=== PATIENT | female | born 1950 | race Caucasian/White ===

== ENCOUNTER 2017-06-12 07:30 | Inpatient (IN) | payer BC ==
--- NOTE | 2017-06-29 09:37 | HP ---
DATE OF ADMISSION: 07/03/17 PROVIDER: Андрей Berrios MD * (DICTATED BY [facility] TSE) CHIEF COMPLAINT: Right knee pain. HISTORY OF PRESENT ILLNESS: Ramya is a 66-year-old female followed by Dr. Berrios for ongoing pain in the right knee. The distance that she is able to ambulate without significant pain has decreased recently. She has difficulty with stairs. She has failed conservative treatment, and elected to proceed with right total knee arthroplasty. PAST MEDICAL HISTORY: 1. Hypertension. 2. High cholesterol. 3. Arthritis. 4. Type II diabetes. PAST SURGICAL HISTORY: 1. Left total knee replacement. 2. Hysterectomy. 3. A Mohs' procedure on her nose. She reports no complications with anesthesia with any of those procedures. CURRENT MEDICATIONS: 1. Lisinopril 40 mg po daily. 2. Metformin HDL 1000 mg twice daily. 3. Metoprolol succinate ER 50 mg once daily. 4. Amlodipine besylate 10 mg once daily. 5. Omeprazole 20 mg once daily. 6. Meloxicam 7.5 mg twice daily. 7. Aspirin 81 mg daily. 8. Flaxseed oil 1000 mg daily. 9. Calcium plus D 1000/800 mg/units once daily. ALLERGIES: 1. BACTRIM. 2. HYDROCHLOROTHIAZIDE. FAMILY HISTORY: Positive for maternal diabetes, maternal high blood pressure, and stroke in her maternal grandmother. SOCIAL HISTORY: She lives with her . She works as an media assistant. She denies tobacco use. She drinks five alcoholic beverages weekly. She exercises occasionally. REVIEW OF SYSTEMS: Negative for recent hospitalizations, fevers, chills, night sweats or weight loss. Head - negative for headaches, lightheadedness or balance problems. Cardiovascular - negative for chest or arm pain with exertion , history of heart attack, heart murmur, heart palpitations, positive for high blood pressure, negative for embolism or deep vein thrombosis. Respiratory - negative for chronic cough, shortness of breath with exertion, asthma, or COPD. Gastrointestinal for occasional heartburn, negative for nausea, vomiting, diarrhea or constipation, positive for GERD. Genitourinary - positive for a recent urinary tract infection which has cleared with antibiotics. Negative for urinary frequency, night-time urination or kidney problems. Musculoskeletal - negative for chronic back pain or recent fracture. Skin - negative for rashes, lesions, bumps or sores. Neurologic - negative for seizures, stroke, epilepsy, depression or anxiety. Endocrine - negative for thyroid problems, positive for diabetes. Hematology - negative for easy bleeding , bruising or anemia. PHYSICAL EXAMINATION GENERAL: She is a well-developed, well-nourished, pleasant female in no acute distress at rest. She is alert and oriented x3 with appropriate mood and affect. VITAL SIGNS: The patient is 5 feet 4 inches, 185 pounds. Blood pressure 125/85 , pulse 78, temperature 97.4. HEENT: Normocephalic, atraumatic. Her hearing and vision are grossly intact. NECK: Her trachea is midline. RESPIRATORY: Lungs are clear to auscultation bilaterally. No wheezes, rales, or rhonchi. CARDIOVASCULAR: Regular rate and rhythm. No murmurs, rubs, or gallops. Normal S1 and S2. ABDOMEN: Soft, nondistended, and nontender. Normal bowel sounds. EXTREMITIES: Exam of the right lower extremity - skin is intact without abrasions or open wounds. There is no edema, ecchymosis or gross deformities. She has a mild joint effusion. She is tender to palpation along the medial joint line. She has a stable varus and valgus stress test. She is able to extend, but is lacking about 2 degrees of full extension. She is able to flex to 120 degrees. Calf is soft and non-tender. She has 2+ tibial and dorsalis pedis pulse. IMPRESSION: Right knee osteoarthritis. PLAN: The patient is to undergo right total knee arthroplasty by Dr. Berrios on 07/03/17. The risks, benefits, and postoperative course were discussed with the patient at length and she would like to proceed. A prescription for Percocet was sent to her pharmacy for post-operative pain. All of her questions were answered to her full satisfaction. She is understanding to call if she develops any problems or concerns. [facility] TSE [id number]/[facility] #: [id number] MTDD
[2017-07-02] MEDS ORDERED: Buffered Lidocaine 0.9% SYRIN* 5 ML/SYR SYRINGE INTRADERM ONE (13:31)
[2017-07-03] MEDS ORDERED: Buffered Lidocaine 0.9% SYRIN* 5 ML/SYR SYRINGE ONE (07:31)
[2017-07-03] MEDS ORDERED: ceFAZolin 2 GM PREMIX (*) 50 ML IVPB ONE (07:46)
[2017-07-03] MEDS ORDERED: Midazolam* 1 MG/ML 5 ML VIAL (5 MG) ONE ×2 (09:23→10:05)
[2017-07-03] MEDS ORDERED: ROPIVACAINE 5 MG/ML 30 ML BTL (0.5%) ONE (09:24)
[2017-07-03] MEDS ORDERED: Bupivacaine 0.5% SDV PF* 30 ML VIAL ONE ×2 (09:33→11:34)
[2017-07-03] MEDS ORDERED: Propofol* 10 MG/ML 20 ML BTL IV PUSH ONE (09:45)
[2017-07-03] MEDS ORDERED: fentaNYL* 50 MCG/ML 2 ML VIAL (100 MCG VIAL) ONE ×2 (09:45→11:44)
[2017-07-03] MEDS ORDERED: HYDROcodone/ACETAMIN 5-325 MG* 1 TAB PO PRN (10:33)
[2017-07-03] MEDS ORDERED: EPHEDrine (Pressors)* 50 MG/ML VIAL IV PUSH PRN (10:33)
[2017-07-03] MEDS ORDERED: Ondansetron INJ* 2 MG/ML VIAL IV PRN ×2 (10:33→12:44)
[2017-07-03] MEDS ORDERED: diPHENhydraMINE IV* 50 MG/ML 1 ml VIAL (BENADRYL) IV PRN (10:33)
[2017-07-03] MEDS ORDERED: DiMENhydriNATE IV* 50 MG/ML VIAL IV PUSH PRN (10:33)
[2017-07-03] MEDS ORDERED: oxyCODONE/Acetamin 5/325 MG* TAB PO PRN ×2 (10:33→12:44)
[2017-07-03] MEDS ORDERED: Lactated Ringers 500 ml BAG* 500 ML IV PRN (10:33)
[2017-07-03] MEDS ORDERED: HYDROmorphone* 1 MG/ML 1 ML CARPUJECT IV PRN (10:52)
[2017-07-03] MEDS ORDERED: fentaNYL* 50 MCG/ML 2 ML VIAL (100 MCG VIAL) IV PRN (10:52)
[2017-07-03] MEDS ORDERED: Scopolamine 1.5 mg* PATCH TRANSDERM SCH (11:00)
[2017-07-03] MEDS ORDERED: Ropivacaine 0.2% EPIDURAL* 200 MG/100 ML BAG EPIDURAL SCH (11:00)
[2017-07-03] MEDS ORDERED: Ropivacaine 0.2% EPIDURAL* 200 MG/100 ML BAG EPIDURAL ONE (11:59)
[2017-07-03] MEDS ORDERED: Morphine INJ* 4 MG/ML 1 ML CARPUJECT IV PRN (12:44)
[2017-07-03] MEDS ORDERED: diPHENhydraMINE PO* 25 MG PO PRN (12:44)
[2017-07-03] MEDS ORDERED: Bisacodyl SUPP* 10 MG SUPP PR PRN (12:44)
[2017-07-03] MEDS ORDERED: Acetaminophen TAB* 325 MG PO PRN (12:44)
[2017-07-03] MEDS ORDERED: Estradiol VAGINAL TAB(NF) 10 MCG VAG.TAB VAGINAL PRN (13:04)
[2017-07-03] MEDS ORDERED: Scopolamine 1.5 mg* PATCH ONE (13:17)
--- NOTE | 2017-07-03 13:39 | RAD ---
HISTORY: Right total knee replacement COMPARISONS: January 29, 2017 VIEWS: 2, Frontal and lateral views of the right knee FINDINGS: BONE DENSITY: Normal. BONES: The patient is status post right knee arthroplasty. There is no hardware failure or osteolysis. JOINTS: The patient is status post right knee arthroplasty ALIGNMENT: There is no dislocation. SOFT TISSUES: There is postsurgical change to the soft tissue. OTHER FINDINGS: None. IMPRESSION: STATUS POST RIGHT KNEE ARTHROPLASTY
[2017-07-03] MEDS ORDERED: Dextrose 50% Syringe 50 ML* 25 GM/50 ML SYRINGE IV PUSH PRN (17:36)
[2017-07-03] MEDS: Insulin LISPRO* 1 UNITS UNIT SUBCUT SCH (17:52)
[2017-07-03] MEDS ORDERED: amLODIPine TAB* 5 MG PO SCH (18:00)
[2017-07-03] MEDS ORDERED: ceFAZolin 1 GM VIAL(*) 1 GM in NS 0.9% 50 ML* 50 ML IVPB SCH (18:00)
--- NOTE | 2017-07-03 18:01 | CONSULT ---
Subjective Date of Service: 07/03/17 Interval History: Ms. Garcia is a 66 yo female with a PMH of HTN, hypercholesterolemia, OA, CKD stage 3, and DM2 who had an elective right total knee arthroplasty. She had previously failed conservative treatment. She denies any recent illness, CP, SOB , abd pain, n/v/d, urinary complaint. She currently denies pain and is tolerating her dinner tray. She is most concerned about pain control; we discussed the medications that will be available and the importance of communicating how she is feeling with the nursing and medical staff. Family History: Findings - Mother - DM, HTN, MGM - CVA Social History: Findings - Denies any hx tobacco use, reports occasional alcohol use, denies illicit drug use. 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 Lives with , Ricky Garcia, who is also HCP. Past Medical History: Findings - HTN, hypercholesterolemia, OA, DM2, CKD 3 Review of Systems - Measurements Intake and Output: Intake and Output Last 24 Hours 07/01/17 07/02/17 07/03/17 07/04/17 06:59 06:59 06:59 06:59 Intake Total 2370 Output Total 3675 Balance -1305 Weight 186 lb Intake: IV Fluids 2350 LR 2300 NS 50ML, Cefazolin 2G 50 Oral 20 Output: Lyn 3675 - Review of Systems Constitutional Symptoms: Negative: Weakness, Fatigue, Fever HEENT: Positive: Normal Negative: Change in Hearing, Vertigo, Sinus Problem Eyes: Positive: Normal, Cataract - s/p correction earlier this year Negative: Change in Vision Thyroid: Negative: Primary Hypothyroidism, Primary Hyperthyroidism, Weight Loss, Weight Gain Pulmonary: Positive: Normal Negative: Cough, Wheezing, Shortness of Breath Cardiology: Positive: Normal Negative: Chest Pain, Shortness of Breath, Palpitations, Edema Gastroenterology: Positive: Normal Negative: Abdominal Pain, Nausea, Vomiting, Diarrhea Genital - Urinary: Positive: Normal Negative: Dysuria Musculoskeletal: Positive: Joint Pain, Arthritis Endocrinology: Positive: Diabetes Mellitus Neurology: Positive: Normal Negative: Headache, Change in Vision, Dizziness, Numbness\Paresthesiae, Unexplained Weakness Psychiatry: Positive: Normal Negative: Depression, Anxiety Objective Active Medications: Acetaminophen (Tylenol Tab*) 650 mg PO Q4H PRN PRN Reason: pain and temp Hydrocodone Bitart/Acetaminophen ([place] 5-325 Tab*) 1 tab PO Q3H PRN PRN Reason: moderate pain Amlodipine Besylate (Norvasc Tab*) 10 mg PO QPM DANETTE Aspirin (Aspirin Tab*) 325 mg PO DAILY DANETTE Bisacodyl (Dulcolax Supp*) 10 mg WA DAILY PRN PRN Reason: constipation Calcium/Vitamin D (Oscal D Tab 250/125*) 1 tab PO DAILY [facility] Dextrose (D50w Syringe 50 Ml*) 12.5 gm IV PUSH .FOR FS < 60 - SS PRN PRN Reason: FS < 60 Dimenhydrinate (Dramamine Iv*) 12.5 mg IV PUSH ONCE PRN PRN Reason: NAUSEA/VOMITING Diphenhydramine HCl (Benadryl Iv*) 12.5 mg IV Q6H PRN PRN Reason: PRURITIS Diphenhydramine HCl (Benadryl Po*) 25 mg PO Q6H PRN PRN Reason: itching Docusate Sodium (Colace Cap*) 100 mg PO BID DANETTE Ephedrine Sulfate (Ephedrine Sulfate (Pressors)*) 5 mg IV PUSH Q5M PRN PRN Reason: HYPOTENSION Estradiol (Vagifem) 10 mcg VAGINAL BEDTIME PRN PRN Reason: DISCOMFORT Ropivacaine (Ropivacaine 0.2% Epidural*) 200 mg in 100 mls @ 0 mls/hr EPIDURAL .PER RATE DANETTE; Per Protocol PRN Reason: Protocol Lactated Ringer's (Lactated Ringers 500 Ml Bag*) 500 mls @ 2,000 mls/hr IV ONCE PRN PRN Reason: FOR SBP < 90 Lactated Ringer's (Lactated Ringers 1000 Ml Bag*) 1,000 mls @ 100 mls/hr IV PER RATE DANETTE Cefazolin Sodium/Dextrose (Kefzol 1 Gm In Dextrose Duplex (*)) 1 gm in 50 mls @ 200 mls/hr IVPB Q8H DANETTE Stop: 07/04/17 10:14 Insulin Human Lispro (Humalog*) 0 units SUBCUT AC DANETTE PRN Reason: Protocol Last Admin: 07/03/17 17:52 Dose: Not Given Lactulose (Lactulose*) 30 ml PO Q6H PRN PRN Reason: constipation Magnesium Hydroxide (Milk Of Magnesia Liq*) 30 ml PO Q6H PRN PRN Reason: constipation Metoprolol Succinate (Toprol Xl Tab*) 50 mg PO QPM [facility] Morphine Sulfate (Morphine Inj (Syringe)*) 2 mg IV Q2H PRN PRN Reason: PAIN - SEVERE Omeprazole (Prilosec Cap*) 20 mg PO QAM DANETTE Ondansetron HCl (Zofran Inj*) 4 mg IV Q6H PRN PRN Reason: NAUSEA/VOMITING Ondansetron HCl (Zofran Inj*) 4 mg IV Q6H PRN PRN Reason: nausea Oxycodone/Acetaminophen (Percocet 5/325 Tab*) 1 tab PO Q3H PRN PRN Reason: moderate pain Oxycodone/Acetaminophen (Percocet 5/325 Tab*) 1 tab PO Q3H PRN PRN Reason: PAIN - MODERATE Oxycodone/Acetaminophen (Percocet 5/325 Tab*) 2 tab PO Q3H PRN PRN Reason: Pain - Moderate - severe Pharmacy Profile Note (Scopolomine Patch Remove*) 1 note PATCH OFF .AFTER 72 HOURS ONE Stop: 07/06/17 10:37 Scopolamine (Transderm-Scop 1.5 Mg Patch*) 1 patch TRANSDERM Q72H [facility] Last Admin: 07/03/17 13:18 Dose: 1 patch Vital Signs 07/03/17 07/03/17 07/03/17 07:19 12:30 12:35 Temperature 97.7 F 97.0 F Pulse Rate 76 70 70 Respiratory 16 18 16 Rate Blood Pressure 143/88 135/92 141/108 (mmHg) O2 Sat by Pulse 96 98 98 Oximetry 07/03/17 07/03/17 07/03/17 12:40 13:12 13:45 Temperature Pulse Rate 74 69 72 Respiratory 17 15 16 Rate Blood Pressure 144/87 135/77 132/69 (mmHg) O2 Sat by Pulse 97 97 95 Oximetry 07/03/17 07/03/17 07/03/17 14:27 14:50 14:53 Temperature 98.0 F 98.0 F Pulse Rate 64 64 Respiratory 18 16 18 Rate Blood Pressure 134/74 134/74 (mmHg) O2 Sat by Pulse 97 97 Oximetry 07/03/17 07/03/17 07/03/17 15:28 16:40 16:57 Temperature 97.8 F 97.7 F Pulse Rate 70 63 Respiratory 20 18 16 Rate Blood Pressure 121/68 128/73 (mmHg) O2 Sat by Pulse 98 97 Oximetry Oxygen Devices in Use Now: None Appearance: Well developed, well nourished female, sitting up in bed, in NAD Eyes: No Scleral Icterus Ears/Nose/Mouth/Throat: Clear Oropharnyx, Mucous Membranes Moist Neck: NL Appearance and Movements; NL JVP Respiratory: Symmetrical Chest Expansion and Respiratory Effort, Clear to Auscultation Cardiovascular: NL Sounds; No Murmurs; No JVD, RRR Abdominal: NL Sounds; No Tenderness; No Distention Extremities: - - RLE dressing c/d/i with hemovac drain with bloody drainage, distal pulses intact Neurological: Alert and Oriented x 3, NL Muscle Strength and Tone Lines/Tubes/Other Access: Clean, Dry and Intact Peripheral IV Nutrition: Taking PO's Assessment/Plan - Billing Plan By Medical Problem: 1. S/p right total knee replacement - management per ortho. Continue pain management, PT/OT. Follow HH and monitor for transfusion needs. 2. HTN - will hold lisinopril post operatively but continue amlodipine with hold parameters. 3. Hypercholesterolemia - heart healthy diet, continue outpatient f/u with PCP. 4. Type 2 DM - will hold metformin post operatively. FSBG AC with Lispro SSI. Recent HgbA1c 6.5, demonstrating good control at home. 5. CKD, stage 3 - monitor renal function post operatively. Avoid nephrotoxic medications 6. Menopausal vaginal symptoms - hold estradiol, as estrogen can increase likelihood of thromboembolic events VTE PPX: Per ortho, ASA 325 mg Diet: Consistent carb diet Code Status: Full code, Ricky Garcia is HCP. Also sister, Ines Gasca, [phone] Admission Status and Rationale: Inpatient Thank you for this consultation. We will follow with you. Counseling and/or Coordination of Care Minutes: 45
[2017-07-03] MEDS: Metoprolol Succinate XL TAB* 50 MG PO SCH (18:08)
[2017-07-03] MEDS: ceFAZolin 1 GM in Dextrose (*) 1 GM/50 ML BAG IVPB SCH (18:08)
[2017-07-03] MEDS: Docusate CAP* 100 MG PO SCH (21:01)
[2017-07-04] MEDS: ceFAZolin 1 GM in Dextrose (*) 1 GM/50 ML BAG IVPB SCH ×2 (02:14→09:42)
--- NOTE | 2017-07-04 04:21 | OP ---
CC: Sheron Ray * DATE OF OPERATION: 07/03/17 - ROOM #341 DATE OF : 54 SURGICAL CARE: Right knee. SURGEON: Андрйе Berrios MD ASSISTANTS: 1. CAMDEN Wellington. 2. Patt Machado, cardiac technologist. ANESTHESIOLOGIST: Bennett Adame MD ANESTHESIA: Spinal with IV sedation. PRE-OP DIAGNOSIS: Severe arthritis of the right knee especially in the lateral compartment with valgus malalignment. POST-OP DIAGNOSIS: Severe arthritis of the right knee especially in the lateral compartment with valgus malalignment. OPERATIVE PROCEDURE: Right total knee replacement. INDICATIONS: Severe right knee arthritis, no longer responsive to nonoperative care. COMPONENTS USED: Magalys Persona knee was utilized. A size 5 femur, a 32 patella, a 10 articular surface, and an E-femur, E tibial component with a small peg extension. All components cemented. COMPLICATIONS: There were no complications. DRAINS: Two blood collection drains, right knee, at the end of the case. ESTIMATED BLOOD LOSS: 200 mL. REPLACEMENT: Crystalloid fluids. CONDITION: Stable to the recovery room. DESCRIPTION OF PROCEDURE: The patient was brought to the operating room and placed on the operating room table in the supine position following the administration of the spinal and the patient was returned to the supine position. A Lyn catheter was inserted. The posterior tibial pulse was noted to be 2+ on the right. The right knee was noted to have a small flexion contracture and valgus alignment. The right proximal thigh was wrapped with a tourniquet. The right leg was given an preliminary chlorhexidine prep and then a formal ChloraPrep from the tourniquet to the tips of the toes. After prepping , draping, and sealing off, we did our universal protocol time-out confirming Ramya Radha and a plan for right total knee replacement. We all agreed and we proceeded. The surgical care was mainly done without tourniquet with the knee acutely flexed and the right foot resting on a padded foot piece. The skin incision went from 2 fingerbreadths proximal to the superior pole of the patellar to the medial aspect of the tibial tubercle. The skin and subcu was divided down to the deep fascia. The prepatellar bursa was traversed and the knee was entered medial parapatellar finding some clear synovial fluid that was not abundant. The anteromedial soft tissues on the tibia were divided down to bone medial to the tibial tubercle, going up to the joint line and then medial parapatellar. The quad tendon divided at the junction of the rectus femoris and vastus medialis staying as close to vastus medialis as possible going 3 to 4 cm proximal to superior pole of the patella. The patella was made so that it could be everted. The anteromedial soft tissues on the tibia were elevated subperiosteally going medially around to the deep MCL and then to the posterior medial corner of the knee. The patient had complete eburnation of bone with bone- on-bone arthritis, lateral femoral condyle, lateral tibial plateau. The patella had large osteophytes and there were some smaller osteophytes on the condyles and plateau including the lateral plateau anteriorly. After the exposure, then the anterior horn of medial meniscus was carefully excised. The lateral meniscus had a large chunk anteriorly, this was carefully excised and there were some remaining lateral meniscus posteriorly that was excised later in the case. The ACL was divided and removed. The osteophytes were removed from the unicondylar notch and the distal anterior femur was exposed subperiosteally for referencing and measuring. The ACL and PCL were uplifted from their femoral origins. The tibia was made so that it could be subluxated from under the femur and PCL was carefully excised keeping careful hemostasis and working very carefully posteriorly. We paid attention to the lateral geniculate course at the periphery of the lateral meniscus as the case went on as well. The infrapatellar fat pad was excised, synovectomy was completed around the patella. After this exposure, then the proximal tibial cut was made. First our goal here was to remove a few millimeters of bone from the low point on the eburnated posterior lateral tibial plateau and 3 to 4 mm on the medial side. The tibial surface goal was to have a tibial surface that would be perpendicular to the long axis of the tibia and have a slight posterior slope. The distal femoral cutting guide was then applied. We made an entry into the femoral canal and suctioned the femur to discourage any embolization and the femoral cutting guide distally was applied with 5 degrees of valgus and on #1 regarding the small flexion contracture of the knee. The distal femoral cut was completed and the extension gap allowed a 10-mm block. The femur was then measured for a size 5 and the cutting block for the 5 was applied to the distal femur and the 5 cuts were completed for the distal femur. We then finished removal of the posterior horn of the lateral meniscus, the PCL with some osteophyte from the postero-medial femoral condyle, the medial meniscus carefully preserving the MCL. At this stage, we had nice ligamentous balance and extension and flexion with a 10-mm block including the 90 degrees of flexion. The femur was completed for the size 5 with the intercondylar cutout. The femoral canal was cleaned x6 with saline, suctioned empty, and a bone block was then inserted. The tibia was then completed for a size 5 and the knee was then articulated and extended with an E tibia, a 10 articular surface, and a 5 femur with nice knee extension, stable ligaments in extension, knee flexion well past 125 degrees, and stable ligaments in 90 degrees of knee flexion. The patella was cut flat, a 32 was chosen, three drill holes were made , these were undercut and a lateral release was not necessary. The final components were then opened. The leg was exsanguinated, the tourniquet was elevated to 275. All the knee was then cleaned in extension with pulsed saline irrigation and careful suction with 2 to 3 L of saline. The knee was flexed, retractors were put into position and all the bony surfaces were then cleaned with pulsed saline 2 to 3 L more. All surfaces were then dried. The cement was mixed, the components were cemented into position, patella followed by tibia , followed by femur. Each was impacted, excess cement was removed, and the knee was articulated and extended during the final hardening. The tourniquet was deflated, we checked posteriorly for retained cement fragments and loose pieces. Careful hemostasis was achieved during the closure. The pericapsular tissues posteromedially, medially, and laterally were infiltrated with Marcaine 0.5% without epinephrine 25 mL and another 5 mL was inserted into the knee at the end of the case. The quadriceps mechanism was reapproximated with interrupted #1 Polysorb in figure- of-8 fashion. Two blood collection drains were brought out through the superolateral suprapatellar pouch. After getting to the medial retinaculum, then we used 0 Polysorb going distally. The deep fascia closed with interrupted 0 Polysorb, the superficial subcu closed with 3-0 Polysorb, and the skin was closed with maria luisa. The skin was washed and dried. The knee was flexed and extended several times during the closure to see that nothing was tethered, and it was not. After washing and drying, the maria luisa were covered with Betadine-soaked release, sterile gauze, sterile Webril, cryotherapy cuff, ABD pads, and then a 6-inch Govind bandage loosely applied. The patient was returned to the recovery room in stable and satisfactory condition having tolerated the procedure very well. [id number]/[facility] #: [id number] FREDO
[2017-07-04] MEDS: oxyCODONE/Acetamin 5/325 MG* TAB PO PRN ×5 (05:40→22:26)
[2017-07-04 05:44] LABS: Hematocrit 30 % (35-47); Hemoglobin 9.9 g/dl (12.0-16.0)
[2017-07-04 06:00] LABS: BUN/Creatinine Ratio 15.5 (8-20); EGFR African American 69.4 (>60); EGFR Non-African American 53.9 (>60); Potassium 4.4 mmol/L (3.5-5.0)
[2017-07-04] MEDS: Insulin LISPRO* 1 UNITS UNIT SUBCUT SCH ×3 (07:19→17:42)
[2017-07-04] MEDS ORDERED: Lisinopril TAB* 10 MG PO SCH (09:00)
[2017-07-04] MEDS: Omeprazole CAP* 20 MG PO SCH (09:10)
[2017-07-04] MEDS: Calcium/Vitamin D TAB 250/125* TAB PO SCH (09:10)
[2017-07-04] MEDS: Docusate CAP* 100 MG PO SCH ×2 (09:10→22:27)
[2017-07-04] MEDS: Aspirin TAB* 325 MG PO SCH (09:43)
--- NOTE | 2017-07-04 14:21 | PN ---
Subjective Date of Service: 07/04/17 Interval History: Patient seen and examined at bedside. Denies fever/chills, CP, SOB, abd pain Reports good pain control, tolerating diet Able to participate in PT today No acute concerns Family History: Findings - Mother - DM, HTN, MGM - CVA Social History: Findings - Denies any hx tobacco use, reports occasional alcohol use, denies illicit drug use. 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 Lives with , Ricky Garcia, who is also HCP. Past Medical History: Findings - HTN, hypercholesterolemia, OA, DM2, CKD 3 Objective Active Medications: Acetaminophen (Tylenol Tab*) 650 mg PO Q4H PRN PRN Reason: pain and temp Hydrocodone Bitart/Acetaminophen ([place] 5-325 Tab*) 1 tab PO Q3H PRN PRN Reason: moderate pain Amlodipine Besylate (Norvasc Tab*) 10 mg PO QPM [facility]AN[facility]TE Aspirin (Aspirin Tab*) 325 mg PO DAILY [facility] Last Admin: 07/04/17 09:43 Dose: 325 mg Bisacodyl (Dulcolax Supp*) 10 mg NM DAILY PRN PRN Reason: constipation Calcium/Vitamin D (Oscal D Tab 250/125*) 1 tab PO DAILY [facility] Last Admin: 07/04/17 09:10 Dose: 1 tab Dextrose (D50w Syringe 50 Ml*) 12.5 gm IV PUSH .FOR FS < 60 - SS PRN PRN Reason: FS < 60 Dimenhydrinate (Dramamine Iv*) 12.5 mg IV PUSH ONCE PRN PRN Reason: NAUSEA/VOMITING Diphenhydramine HCl (Benadryl Iv*) 12.5 mg IV Q6H PRN PRN Reason: PRURITIS Diphenhydramine HCl (Benadryl Po*) 25 mg PO Q6H PRN PRN Reason: itching Docusate Sodium (Colace Cap*) 100 mg PO BID [facility] Last Admin: 07/04/17 09:10 Dose: 100 mg Ephedrine Sulfate (Ephedrine Sulfate (Pressors)*) 5 mg IV PUSH Q5M PRN PRN Reason: HYPOTENSION Ropivacaine (Ropivacaine 0.2% Epidural*) 200 mg in 100 mls @ 0 mls/hr EPIDURAL .PER RATE DANETTE; Per Protocol PRN Reason: Protocol Last Admin: 07/03/17 21:54 Dose: 8 mls/hr Lactated Ringer's (Lactated Ringers 500 Ml Bag*) 500 mls @ 2,000 mls/hr IV ONCE PRN PRN Reason: FOR SBP < 90 Lactated Ringer's (Lactated Ringers 1000 Ml Bag*) 1,000 mls @ 100 mls/hr IV PER RATE [facility] Last Admin: 07/04/17 01:49 Dose: 100 mls/hr Insulin Human Lispro (Humalog*) 0 units SUBCUT [facility] PRN Reason: Protocol Last Admin: 07/04/17 12:14 Dose: Not Given Lactulose (Lactulose*) 30 ml PO Q6H PRN PRN Reason: constipation Magnesium Hydroxide (Milk Of Magnesia Liq*) 30 ml PO Q6H PRN PRN Reason: constipation Metoprolol Succinate (Toprol Xl Tab*) 50 mg PO QPM [facility] Last Admin: 07/03/17 18:08 Dose: 50 mg Morphine Sulfate (Morphine Inj (Syringe)*) 2 mg IV Q2H PRN PRN Reason: PAIN - SEVERE Omeprazole (Prilosec Cap*) 20 mg PO QAM [facility] Last Admin: 07/04/17 09:10 Dose: 20 mg Ondansetron HCl (Zofran Inj*) 4 mg IV Q6H PRN PRN Reason: NAUSEA/VOMITING Ondansetron HCl (Zofran Inj*) 4 mg IV Q6H PRN PRN Reason: nausea Oxycodone/Acetaminophen (Percocet 5/325 Tab*) 1 tab PO Q3H PRN PRN Reason: moderate pain Last Admin: 07/04/17 01:43 Dose: 1 tab Oxycodone/Acetaminophen (Percocet 5/325 Tab*) 1 tab PO Q3H PRN PRN Reason: PAIN - MODERATE Oxycodone/Acetaminophen (Percocet 5/325 Tab*) 2 tab PO Q3H PRN PRN Reason: Pain - Moderate - severe Last Admin: 07/04/17 12:58 Dose: 2 tab Pharmacy Profile Note (Scopolomine Patch Remove*) 1 note PATCH OFF .AFTER 72 HOURS ONE Stop: 07/06/17 10:37 Scopolamine (Transderm-Scop 1.5 Mg Patch*) 1 patch TRANSDERM Q72H [facility] Last Admin: 07/03/17 13:18 Dose: 1 patch Vital Signs 07/03/17 07/03/17 07/03/17 14:27 14:50 14:53 Temperature 98.0 F 98.0 F Pulse Rate 64 64 Respiratory 18 16 18 Rate Blood Pressure 134/74 134/74 (mmHg) O2 Sat by Pulse 97 97 Oximetry 07/03/17 07/03/17 07/03/17 15:28 16:40 16:57 Temperature 97.8 F 97.7 F Pulse Rate 70 63 Respiratory 20 18 16 Rate Blood Pressure 121/68 128/73 (mmHg) O2 Sat by Pulse 98 97 Oximetry 07/03/17 07/03/17 07/03/17 18:25 18:31 19:28 Temperature 98.3 F Pulse Rate 68 Respiratory 18 16 Rate Blood Pressure 115/62 (mmHg) O2 Sat by Pulse 100 98 Oximetry 07/03/17 07/03/17 07/03/17 20:36 21:01 23:44 Temperature 98.3 F 98.1 F Pulse Rate 68 66 Respiratory 18 20 16 Rate Blood Pressure 121/75 109/67 (mmHg) O2 Sat by Pulse 98 97 Oximetry 07/04/17 07/04/17 07/04/17 01:43 02:28 03:38 Temperature 98.2 F Pulse Rate 65 Respiratory 20 16 Rate Blood Pressure 114/68 (mmHg) O2 Sat by Pulse 97 98 Oximetry 07/04/17 07/04/17 07/04/17 03:43 05:40 07:19 Temperature Pulse Rate Respiratory 18 20 16 Rate Blood Pressure (mmHg) O2 Sat by Pulse Oximetry 07/04/17 07/04/17 07/04/17 07:21 08:00 09:43 Temperature 97.7 F Pulse Rate 65 Respiratory 17 16 18 Rate Blood Pressure 119/71 (mmHg) O2 Sat by Pulse 96 96 Oximetry 07/04/17 07/04/17 07/04/17 11:07 11:43 12:58 Temperature 98.7 F Pulse Rate 72 Respiratory 16 18 18 Rate Blood Pressure 125/71 (mmHg) O2 Sat by Pulse 95 Oximetry Oxygen Devices in Use Now: None Appearance: Female patient, pleasant, sitting up in bed, NAD Eyes: No Scleral Icterus Ears/Nose/Mouth/Throat: Clear Oropharnyx, Mucous Membranes Moist Neck: NL Appearance and Movements; NL JVP Respiratory: Symmetrical Chest Expansion and Respiratory Effort, Clear to Auscultation Cardiovascular: NL Sounds; No Murmurs; No JVD, RRR Abdominal: NL Sounds; No Tenderness; No Distention Extremities: No Clubbing, Cyanosis, - - right knee dressing c/d/i, distal pulses 2+ and symmetrical, brisk cap refill Neurological: Alert and Oriented x 3, NL Muscle Strength and Tone Lines/Tubes/Other Access: Clean, Dry and Intact Peripheral IV Nutrition: Taking PO's Result Diagrams: 07/04/17 05:11 07/04/17 05:11 Assess/Plan/Problems-Billing Ms. Lee is a 66 yo female with a PMH significant for DM2, HTN, HLD, and CKD who was admitted 07/03 for an elective right total knee replacement. - Patient Problems (1) Status post total right knee replacement Code(s): Z96.651 - PRESENCE OF RIGHT ARTIFICIAL KNEE JOINT Comment: POD #1, management per ortho. Continue pain management PT/OT Continue to follow HH, monitor for transfusion needs (2) HTN (hypertension) Current Visit: Yes Status: Acute Code(s): I10 - ESSENTIAL (PRIMARY) HYPERTENSION SNOMED Code(s): 60903431 Comment: Normotensive Continue amlodipine with hold parameters. Continue to hold lisinopril postoperatively. (3) Hypercholesteremia Code(s): E78.00 - PURE HYPERCHOLESTEROLEMIA, UNSPECIFIED Comment: Currently managed by diet Continue heart healthy, consistent carb diet Outpatient f/u with PCP (4) Type 2 diabetes mellitus Comment: Controlled Recent HgbA1c 6.5 Continue FSBG with Lispro SSI Resume metformin at discharge (5) CKD (chronic kidney disease) stage 3, GFR 30-59 ml/min Code(s): N18.3 - CHRONIC KIDNEY DISEASE, STAGE 3 (MODERATE) Comment: Creatinine within baseline Avoid nephrotoxic medications (6) DVT prophylaxis Comment: Per ortho ASA and SCDs Status and Disposition: Inpatient admission. Dispo per ortho. Hospitalist co-medical management
[2017-07-04] MEDS: Metoprolol Succinate XL TAB* 50 MG PO SCH (17:44)
[2017-07-04] MEDS: amLODIPine TAB* 5 MG PO SCH (17:44)
[2017-07-05] MEDS: oxyCODONE/Acetamin 5/325 MG* TAB PO PRN ×5 (03:03→21:01)
[2017-07-05 06:59] LABS: Hematocrit 29 % (35-47); Hemoglobin 9.5 g/dl (12.0-16.0)
[2017-07-05] MEDS: Insulin LISPRO* 1 UNITS UNIT SUBCUT SCH ×3 (07:39→16:58)
--- NOTE | 2017-07-05 08:40 | PN ---
Progress Note - Progress Note Date of Service: 07/05/17 SOAP: Subjective: []Pain is under control and she got some sleep. Did well yesterday with walker ambulation Objective: []Awake, alert , oriented and cooperative. T 98.5 and Hct is 29%. In and out is satisfactory. Dressing changed right knee and surgery is clean, dry, minimally swollen and not discolored. New dressing of telfa, betadine solution, gauze, 6 inch coleen applied. N/V right foot is intact. Able to do a straight leg raise and flex and extend the right knee to 50 degrees nd minus 5 degrees. Assessment: []Stable and doing well. Acute blood loss anemia. Plan: []May shower, continue TKR rehab protocol and home 07/06 with one adult ASA and day for 4 weeks for DVT protection.
[2017-07-05] MEDS: Calcium/Vitamin D TAB 250/125* TAB PO SCH (09:29)
[2017-07-05] MEDS: Magnesium Hydroxide LIQ* 30 ML UDC PO PRN ×2 (09:29→15:48)
[2017-07-05] MEDS: Docusate CAP* 100 MG PO SCH ×2 (09:29→21:01)
[2017-07-05] MEDS: Omeprazole CAP* 20 MG PO SCH (09:29)
[2017-07-05] MEDS: Aspirin TAB* 325 MG PO SCH (09:29)
--- NOTE | 2017-07-05 14:57 | PN ---
Subjective Date of Service: 07/05/17 Interval History: Ms. Garcia is doing well and denies any complaint. She specifically denies chest pain, SOB, nausea, or abdominal pain. She is looking forward to her intended discharge tomorrow. Family History: Findings - Mother - DM, HTN, MGM - CVA Social History: Findings - Denies any hx tobacco use, reports occasional alcohol use, denies illicit drug use. 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 Lives with , Ricky Garcia, who is also HCP. Past Medical History: Findings - HTN, hypercholesterolemia, OA, DM2, CKD 3 Objective Active Medications: Acetaminophen (Tylenol Tab*) 650 mg PO Q4H PRN Hydrocodone Bitart/Acetaminophen ([place] 5-325 Tab*) 1 tab PO Q3H PRN Amlodipine Besylate (Norvasc Tab*) 10 mg PO QPM DANETTE Aspirin (Aspirin Tab*) 325 mg PO DAILY [facility] Bisacodyl (Dulcolax Supp*) 10 mg NE DAILY PRN Calcium/Vitamin D (Oscal D Tab 250/125*) 1 tab PO DAILY [facility]AN[facility]TE Dextrose (D50w Syringe 50 Ml*) 12.5 gm IV PUSH .FOR FS < 60 - SS PRN Dimenhydrinate (Dramamine Iv*) 12.5 mg IV PUSH ONCE PRN Diphenhydramine HCl (Benadryl Iv*) 12.5 mg IV Q6H PRN Diphenhydramine HCl (Benadryl Po*) 25 mg PO Q6H PRN Docusate Sodium (Colace Cap*) 100 mg PO BID [facility]ANETTE Ephedrine Sulfate (Ephedrine Sulfate (Pressors)*) 5 mg IV PUSH Q5M PRN Ropivacaine (Ropivacaine 0.2% Epidural*) 200 mg in 100 mls @ 0 mls/hr EPIDURAL .PER RATE DANETTE; Per Protocol Lactated Ringer's (Lactated Ringers 500 Ml Bag*) 500 mls @ 2,000 mls/hr IV ONCE PRN Lactated Ringer's (Lactated Ringers 1000 Ml Bag*) 1,000 mls @ 100 mls/hr IV PER RATE DANETTE Insulin Human Lispro (Humalog*) 0 units SUBCUT AC DANETTE Lactulose (Lactulose*) 30 ml PO Q6H PRN Magnesium Hydroxide (Milk Of Magnesia Liq*) 30 ml PO Q6H PRN Metoprolol Succinate (Toprol Xl Tab*) 50 mg PO QPM DANETTE Morphine Sulfate (Morphine Inj (Syringe)*) 2 mg IV Q2H PRN Omeprazole (Prilosec Cap*) 20 mg PO QAM [facility]AN[facility]TE Ondansetron HCl (Zofran Inj*) 4 mg IV Q6H PRN Ondansetron HCl (Zofran Inj*) 4 mg IV Q6H PRN Oxycodone/Acetaminophen (Percocet 5/325 Tab*) 1 tab PO Q3H PRN Oxycodone/Acetaminophen (Percocet 5/325 Tab*) 1 tab PO Q3H PRN Oxycodone/Acetaminophen (Percocet 5/325 Tab*) 2 tab PO Q3H PRN Pharmacy Profile Note (Scopolomine Patch Remove*) 1 note PATCH OFF .AFTER 72 HOURS ONE Scopolamine (Transderm-Scop 1.5 Mg Patch*) 1 patch TRANSDERM Q72H [facility] Vital Signs 07/04/17 07/04/17 07/04/17 14:58 15:28 15:39 Temperature 98.5 F Pulse Rate 67 Respiratory 16 17 Rate Blood Pressure 111/67 (mmHg) O2 Sat by Pulse 96 96 Oximetry 07/04/17 07/04/17 07/04/17 17:43 18:20 19:14 Temperature 98.3 F Pulse Rate 71 74 Respiratory 18 18 Rate Blood Pressure 104/65 91/53 (mmHg) O2 Sat by Pulse 95 Oximetry 07/04/17 07/04/17 07/04/17 20:20 22:26 22:46 Temperature Pulse Rate Respiratory 16 18 18 Rate Blood Pressure (mmHg) O2 Sat by Pulse Oximetry 07/04/17 07/05/17 07/05/17 23:49 00:26 02:20 Temperature 98.2 F Pulse Rate 66 Respiratory 16 14 Rate Blood Pressure 105/70 (mmHg) O2 Sat by Pulse 96 95 Oximetry 07/05/17 07/05/17 07/05/17 03:03 03:24 05:03 Temperature 98.1 F Pulse Rate 67 Respiratory 16 16 14 Rate Blood Pressure 112/70 (mmHg) O2 Sat by Pulse 95 Oximetry 07/05/17 07/05/17 07/05/17 06:25 07:18 08:00 Temperature 97.4 F Pulse Rate 72 Respiratory 14 16 18 Rate Blood Pressure 110/74 (mmHg) O2 Sat by Pulse 92 92 Oximetry 07/05/17 07/05/17 07/05/17 08:25 09:29 11:16 Temperature 97.8 F Pulse Rate 68 Respiratory 18 16 18 Rate Blood Pressure 101/64 (mmHg) O2 Sat by Pulse 92 Oximetry 07/05/17 07/05/17 11:29 13:05 Temperature Pulse Rate Respiratory 18 18 Rate Blood Pressure (mmHg) O2 Sat by Pulse Oximetry Oxygen Devices in Use Now: None Appearance: Female sitting up in bed in NAD Eyes: No Scleral Icterus Ears/Nose/Mouth/Throat: Mucous Membranes Moist Neck: Trachea Midline Respiratory: Symmetrical Chest Expansion and Respiratory Effort, Clear to Auscultation Cardiovascular: NL Sounds; No Murmurs; No JVD, No Edema Abdominal: NL Sounds; No Tenderness; No Distention Lymphatic: No Cervical Adenopathy Extremities: No Edema Skin: No Rash or Ulcers Neurological: Alert and Oriented x 3, NL Muscle Strength and Tone Nutrition: Taking PO's Result Diagrams: 07/05/17 06:28 07/04/17 05:11 Assess/Plan/Problems-Billing Ms. Lee is a 66 yo female with a PMH significant for DM2, HTN, HLD, and CKD who was admitted 07/03 for an elective right total knee replacement. - Patient Problems (1) Status post total right knee replacement Comment: POD #2, management per ortho. Continue pain management PT/OT Continue to follow HH. (2) HTN (hypertension) Comment: SBP 90-110s. Continue amlodipine with hold parameters. Continue to hold lisinopril postoperatively, resume at discharge. (3) CKD (chronic kidney disease) stage 3, GFR 30-59 ml/min Comment: Creatinine at baseline (4) Hypercholesteremia Comment: Currently managed by diet Continue heart healthy, consistent carb diet (5) Type 2 diabetes mellitus Comment: Controlled Recent HgbA1c 6.5 Continue FSBG with Lispro SSI Resume metformin at discharge (6) DVT prophylaxis Comment: Per ortho ASA and SCDs Status and Disposition: Inpatient admission. Dispo per ortho. Hospital Medicine will sign off for now, please do not hesitate to contact with further questions or concerns.
[2017-07-05] MEDS: amLODIPine TAB* 5 MG PO SCH (17:00)
[2017-07-05] MEDS: Metoprolol Succinate XL TAB* 50 MG PO SCH (17:00)
[2017-07-06] MEDS: oxyCODONE/Acetamin 5/325 MG* TAB PO PRN ×2 (02:15→10:01)
[2017-07-06] MEDS: Insulin LISPRO* 1 UNITS UNIT SUBCUT SCH (07:35)
[2017-07-06] MEDS: Calcium/Vitamin D TAB 250/125* TAB PO SCH (08:34)
[2017-07-06] MEDS: Aspirin TAB* 325 MG PO SCH (08:34)
[2017-07-06] MEDS: Omeprazole CAP* 20 MG PO SCH (08:34)
[2017-07-06] MEDS: Docusate CAP* 100 MG PO SCH (08:34)
[2017-07-06 08:43] LABS: Hematocrit 29 % (35-47); Hemoglobin 9.3 g/dl (12.0-16.0)
[2017-07-06] MEDS ORDERED: Scopolomine PATCH Remove* 1 NOTE MISC PATCH OFF ONE (10:36)
--- NOTE | 2017-07-06 10:54 | PN ---
Progress Note - Progress Note Date of Service: 07/06/17 SOAP: Subjective: Pt comfortably sitting up in chair. No complaint of pain. Denies CP, SOB, Fever , chills. Objective: Calves soft, nontender; Dressing C/D/I; DP pulses 2+ B/L Laboratory Last Values Hgb 9.3 g/dl (12.0-16.0) L 07/06/17 07:53 Hct 29 % (35-47) L 07/06/17 07:53 Sodium 137 mmol/L (133-145) 07/04/17 05:11 Potassium 4.4 mmol/L (3.5-5.0) 07/04/17 05:11 Chloride 103 mmol/L (101-111) 07/04/17 05:11 Carbon Dioxide 29 mmol/L (22-32) 07/04/17 05:11 Anion Gap 5 mmol/L (2-11) 07/04/17 05:11 BUN 16 mg/dL (6-24) 07/04/17 05:11 Creatinine 1.03 mg/dL (0.51-0.95) H 07/04/17 05:11 Est GFR ( Amer) 69.4 (>60) 07/04/17 05:11 Est GFR (Non-Af Amer) 53.9 (>60) 07/04/17 05:11 BUN/Creatinine Ratio 15.5 (8-20) 07/04/17 05:11 Glucose 111 mg/dL (70-100) H 07/04/17 05:11 POC Glucose (mg/dL) 111 mg/dL (70-100) H 07/06/17 07:24 Calcium 9.0 mg/dL (8.6-10.3) 07/04/17 05:11 Assessment: Right TKR POD #3 Plan: 1. PT/OT OOB 2. ASA for DVT prophylaxis 3. D/C plan - Home today
[2017-07-06 11:20] VITALS: BP 113/70
--- NOTE | 2017-07-07 05:47 | DS ---
DISCHARGE SUMMARY: DATE OF ADMISSION: 07/03/17 DATE OF DISCHARGE: 07/06/17 ATTENDING PHYSICIAN: Андрей Berrios MD * (DICTATED BY CAMDEN TAYLOR) PRINCIPAL DIAGNOSIS: Right knee osteoarthritis. SECONDARY DIAGNOSES: 1. Hypertension. 2. High cholesterol. 3. Arthritis. 4. Type 2 diabetes. PRINCIPAL PROCEDURE: Right total knee replacement. REASON FOR HOSPITALIZATION: Ramya is a 66-year-old female who had been followed by Dr. Berrios for ongoing right knee pain due to endstage right knee osteoarthritis. Physician says she was able to ambulate without significant pain, but has decreased recently. She has difficulty with stairs. She has failed conservative treatment and had elected to proceed with right total knee arthroplasty. This was scheduled for 07/03/17. HOSPITAL COURSE: The patient was admitted to the hospital on 07/03/17 for anticipated right total knee replacement by Dr. Berrios. The patient underwent surgery without any complications and was taken to the recovery room and subsequently the surgical stay unit in a stable condition. Her Hemovac was discontinued on postop day #1. Dry sterile dressing changes have been carried out. The patient has been on oxycodone for postoperative pain. She has been taking aspirin 325 mg daily for DVT prophylaxis. He has been current with a physical therapy regimen for right total knee replacement. Daily hemoglobin and hematocrit has been checked and hemoglobin was 9.3 and hematocrit 29 on the day of discharge and the patient has not had any complications during this hospital stay and will be discharged to home in a stable condition on 07/06/17. The patient will continue with aspirin 325 mg daily until 07/28/17. She can be weightbearing as tolerated on the right lower extremity, may continue to shower with dry sterile dressing daily changes with sterile gauze daily until thomas removed. Thomas can be removed by the home health nurse on postop day #10 and the patient will follow up with Dr. Berrios in 4 weeks. CAMDEN TAYLOR [id number]/[facility] #: [id number] MTDD
== END 2017-07-06 11:25 | disposition home health service (06) | DRG 302 ==
LOC: AA 07-03 06:41 → SSU 07-03 14:45
PROVIDERS: ADMIT Orthopaedic Surgery; ATTEND Orthopaedic Surgery
PROC: 0SRC0J9 Replacement of Right Knee Joint with Synthetic Substitute, Cemented, Open Approach (ICD-10-PCS; principal; 2017-07-03 08:15)
DX: M17.11 Unilateral primary osteoarthritis, right knee (principal); E11.22 Type 2 diabetes mellitus with diabetic chronic kidney disease; N18.3 Chronic kidney disease, stage 3 (moderate); D62 Acute posthemorrhagic anemia; E78.00 Pure hypercholesterolemia, unspecified; Z96.652 Presence of left artificial knee joint; K21.9 Gastro-esophageal reflux disease without esophagitis; I12.9 Hypertensive chronic kidney disease with stage 1 through stage 4 chronic kidney disease, or unspecified chronic kidney disease; E66.9 Obesity, unspecified; M21.061 Valgus deformity, not elsewhere classified, right knee; M25.761 Osteophyte, right knee; N95.1 Menopausal and female climacteric states; Z90.710 Acquired absence of both cervix and uterus; Z88.1 Allergy status to other antibiotic agents; Z88.8 Allergy status to other drugs, medicaments and biological substances; Z83.3 Family history of diabetes mellitus; Z82.3 Family history of stroke; Z82.49 Family history of ischemic heart disease and other diseases of the circulatory system; Z72.89 Other problems related to lifestyle; Z68.31 Body mass index [BMI] 31.0-31.9, adult
CPT/HCPCS: 36415; 62327; 80048; 85014; 85018; 88305; 88311; 94760; A9270-GY; C1776; J0690; J2250; J2704; J2795; J3010

== ENCOUNTER 2018-03-19 05:54 | Inpatient (IN) | payer BC ==
--- NOTE | 2018-03-06 20:51 | HP ---
ADMISSION HISTORY AND PHYSICAL: DATE OF ADMISSION/SURGERY: 03/19/18 She is coming in to [facility] on 03/19/18 for a right total hip replacement. CHIEF COMPLAINT: Right hip pain and limping. HISTORY OF PRESENT ILLNESS: She has had right hip arthritis for the past month. Her walking has been limited to 1 to 2 blocks at the grocery store. She has had to use the car and after a trip to the grocery store, she has been exhausted for the day with her right hip pain and arthritis. She describes the current disability from the right hip region as "ruining her current quality of life." Meloxicam has been used 7.5 mg twice a day. For pain, she has been using ibuprofen and more recently some hydrocodone 5 mg. She has also used Tylenol. In the last couple of months , it has become difficult to sleep because of pain when she is lying on her right side in the right hip region. She has bilateral knee replacements. PAST MEDICAL HISTORY: No heart attack. No chest pain. She has hypertension and type 2 diabetes. She has 4 to 5 drinks per week. She does not smoke. No bleeding tendencies. She had a DVT after her right total knee replacement. CURRENT MEDICATIONS: 1. Pep 5/325 mg. She is taking about 2 per day. 2. Lisinopril 40 mg. 3. Metformin 1000 mg. 4. Metoprolol extended release. 5. Amlodipine 10 mg. 6. Omeprazole 20 mg. 7. Meloxicam 7.5 mg. 8. Low dose aspirin. 9. Flaxseed oil. 10. Calcium. ALLERGIES: 1. BACTRIM. 2. HYDROCHLOROTHIAZIDE. She has hay fever. PHYSICAL EXAMINATION GENERAL: She is well nourished, well developed, not acutely distressed, and antalgic gait on the right. VITAL SIGNS: Temperature 97.6, blood pressure 139/77, pulse is 78. LUNGS: Clear. HEART: Regular. S1 and S2 normal. No murmurs or gallops. ABDOMEN: Soft and nontender. There is no organomegaly. EXTREMITIES: The right hip has painful and limited range of movement. NEUROLOGIC: Cranial nerves are grossly intact. IMAGING: X-rays show severe arthritis of the right hip, it is [id number] and there is erosion of femoral head. IMPRESSION: Severe arthritis of the right hip. PLAN: Right total hip replacement. Goals, risks and complications of the surgical care were reviewed with the patient in my office and her questions were answered. We will plan to try to get her home in 2 days after the hip replacement. [id number]/[facility] #: [id number] MTDD
[~2018-03-19 05:54] MED LIST: Buffered Lidocaine 0.9% SYRIN* 5 ML/SYR SYRINGE INTRADERM ONE
--- OUTSIDE RECORDS SUMMARY | 2018-03-19 06:01 | XMS REPORT ---
:1950 External Reference #:[id number] Author Organization [facility] Address [address] [address] Phone [phone] Care Team Providers Name Role Phone Mekhi Noguera D.O. Primary Care Physician Unavailable Payers Type Date Identification Numbers Payment Provider Subscriber Commercial Policy Number: [id number] HARVINDER Facundo Garcia PayID: [id number] [address] [address] [place] [address] Medigap Part B Expires: 2011 Policy Number: BS Yadi DEBBIE Bui [id number] Radha PayID: [id number] [address] [address] [place] [address] Problems Description No Information Family History Date Family Member(s) Problem(s) Comments General Diabetes Social History Type Date Description Comments Lives With ETOH Use Drinks 5 Alcoholic Beverages Per Week Smoking Patient has never smoked Exercise Type/Frequency Exercises sporadically Allergies, Adverse Reactions, Alerts Date Description Reaction Status Severity Comments 06/20/2017 Bactrim active 06/20/2017 Hydrochlorothiazide active 02/11/2014 NKDA inactive Medications Medication Date Status Form Strength Qnty SIG Indications Ordering Provider [place] Active Tablets 5-325mg 60tabs 1 by M16.11 Dirk 018 mouth Yash, every 8 M.D. hours as needed for pain use less and less as soon as able [place] Active Tablets 5-325mg 60tabs 1 to 2 by Z96.651 Dirk 017 mouth Yash, every 8 M.D. hours as needed for pain, use less and less as soon as able Amoxicillin Active Capsules 500mg 20caps 4 tablets Dirk 015 1 hour Yash, before M.D. dental work Lisinopril Active 40mg Unknown 000 Metformin HCL Active 1000 Unknown 000 Metoprolol Active Unknown Succinate ER 000 Amlodipine Active 10mg Unknown Besylate 000 Omeprazole Active 20mg Unknown 000 Meloxicam Active 7.5 Unknown 000 Aspirin Ec Active Unknown Lo-Dose 000 Flaxseed Oil Active Capsules 1000mg 1 by Unknown 000 mouth every day Calcium 1000 + Active Tablets 1000-800mg- once Unknown D 000 Unit daily Percocet Hx Tablets 5-325mg 90tabs take 1-2 Dirk 017 - tabs by Yash, mouth M.D. 018 q4-6 hours as needed pain Oxycodone-Acet Hx Tablets 5-325mg 20tabs 1-2 tab Dirk aminophen 015 - by mouth Yash, bid as M.D. 016 needed for pain Zetia Hx 10mg Unknown 000 - 016 Fish Oil Hx Unknown Concentrate 000 - 016 Medications Administered in Office Medication Date Status Form Strength Qnty SIG Indications Ordering Provider Depomedrol Administered Injection Dirk Yash, 40MG 017 M.D. Depomedrol Administered Injection Sally 80MG 014 LEA LouiseC Vital Signs Date Vital Result Comment 03/06/2018 Height 65 inches 5'5" Weight 185.00 lb Heart Rate 78 /min BP Systolic Sitting 139 mmHg BP Diastolic Sitting 77 mmHg Respiratory Rate 16 /min Body Temperature 97.6 F Pain Level 3 BMI (Body Mass Index) 30.8 kg/m2 02/13/2018 Heart Rate 76 /min BP Systolic 138 mmHg BP Diastolic 80 mmHg Respiratory Rate 16 /min Body Temperature 97.0 F Pain Level 7 09/17/2017 Height 64 inches 5'4" Weight 185.00 lb BP Systolic 128 mmHg BP Diastolic 76 mmHg Respiratory Rate 18 /min Body Temperature 97.5 F Pain Level 0 BMI (Body Mass Index) 31.8 kg/m2 07/16/2017 Heart Rate 66 /min Respiratory Rate 16 /min Body Temperature 97.2 F 06/20/2017 Height 64 inches 5'4" Weight 185.00 lb Heart Rate 78 /min BP Systolic Sitting 125 mmHg BP Diastolic Sitting 85 mmHg Body Temperature 97.4 F Pain Level 4 BMI (Body Mass Index) 31.8 kg/m2 04/16/2017 Height 64 inches 5'4" Weight 185.00 lb Heart Rate 81 /min BP Systolic 159 mmHg BP Diastolic 95 mmHg Body Temperature 97.3 F BMI (Body Mass Index) 31.8 kg/m2 01/29/2017 Height 64 inches 5'4" Weight 194.00 lb Heart Rate 72 /min BP Systolic 111 mmHg BP Diastolic 72 mmHg Respiratory Rate 16 /min Body Temperature 98.0 F Pain Level 9 BMI (Body Mass Index) 33.3 kg/m2 07/12/2016 Height 64 inches 5'4" Weight 198.00 lb Heart Rate 83 /min BP Systolic 142 mmHg BP Diastolic 93 mmHg BMI (Body Mass Index) 34.0 kg/m2 11/11/2014 Height 64 inches 5'4" Weight 198.00 lb Pain Level 8 BMI (Body Mass Index) 34.0 kg/m2 09/02/2014 Height 64 inches 5'4" Weight 198.00 lb Heart Rate 74 /min BP Systolic 130 mmHg BP Diastolic 87 mmHg BMI (Body Mass Index) 34.0 kg/m2 Results Test Date Test Result H/L Range Note Urinalysis Profile 06/20/2017 Urine Color Straw Urine Appearance Clear Urine Specific [place] 1.006 Low 1.010-1.030 Urine pH 5.0 5-9 Urine Urobilinogen Negative Negative Urine Ketones Negative Negative Urine Protein Negative Negative Urine Leukocytes Negative Negative Urine Blood Negative Negative Urine Nitrite Negative Negative Urine Bilirubin Negative Negative Urine Glucose Negative Negative CBC No Diff 06/20/2017 White Blood Count 6.7 10^3/uL 3.5-10.8 Red Blood Count 3.94 10^6/uL Low 4.0-5.4 Hemoglobin 11.2 g/dL Low 12.0-16.0 Hematocrit 35 % 35-47 Mean Corpuscular Volume 89 fL 80-97 Mean Corpuscular Hemoglobin 28 pg 27-31 Mean Corpuscular HGB Conc 32 g/dL 31-36 Red Cell Distribution Width 15 % 10.5-15 Platelet Count 287 10^3/uL 150-450 Mean Platelet Volume 9 um3 7.4-10.4 Type & Screen 06/20/2017 Patient Blood Type A Positive Antibody Screen NEGATIVE Basic Metabolic Panel 06/20/2017 Sodium 135 mmol/L 133-145 Potassium 5.2 mmol/L High 3.5-5.0 Chloride 101 mmol/L 101-111 Co2 Carbon Dioxide 24 mmol/L 22-32 Anion Gap 10 mmol/L 2-11 Glucose 71 mg/dL 70-100 Blood Urea Nitrogen 25 mg/dL High 6-24 Creatinine 1.09 mg/dL High 0.51-0.95 BUN/Creatinine Ratio 22.9 High 8-20 Calcium 9.9 mg/dL 8.6-10.3 Egfr Non- 50.5 >60 Egfr 65.0 >60 1 Inr/Protime 06/20/2017 Inr 0.81 Low 0.89-1.11 Laboratory test finding 06/20/2017 Partial Thrombo Time 26.1 seconds 26.0 -36.3 PTT 1 Because ethnic data is not always readily available, this report includes an eGFR for both -Americans and non- Americans. The National Kidney Disease Education Program (NKDEP) does not endorse the use of the MDRD equation for patients that are not between the ages of 18 and 70, are , have extremes of body size, muscle mass, or nutritional status, or are non- or non-. According to the National Kidney Foundation, irrespective of diagnosis, the stage of the disease is based on the level of kidney function: Stage Description GFR(mL/min/1.73 m(2)) 1 Kidney damage with normal or decreased GFR 90 2 Kidney damage with mild decrease in GFR 60-89 3 Moderate decrease in GFR 30-59 4 Severe decrease in GFR 15-29 5 Kidney failure <15 (or dialysis) Procedures Date CPT Code Description Status 07/03/2017 65048 TKR Total Knee Replacement Completed 07/03/2017 18587 TKR Total Knee Replacement Completed 06/20/2017 62208 EKG, Interpretation Only Completed 01/29/2017 71368 Inject/Drain Joint/Bursa Major Completed 09/02/2014 71189 Rad Exam; Pelvis Completed 09/02/201497615 Inject/Drain Joint/Bursa Major Completed 04/28/2013 09223 Rad Exam; Foot Comp Completed 12/12/2007 03129 EKG, Interpretation Only Completed 12/12/2007 27162 EKG, Interpretation Only Completed Encounters Type Date Location Provider CPT E/M Dx Office Visit 02/13/2018 [facility] M[facility]. 59009 M16.11 9:00a C.M.A. Office Visit 07/05/2017 [facility], Ila Pepe N.P. 23077 N18.3 7:24a Hospitalists E11.9 I10 Z96.651 Office Visit 07/04/2017 7:23a [facility], [place] [address] E11.9 Hospitalists N18.3 I10 Z96.651 Office Visit 07/03/2017 7:23a [facility], [place] [address] N18.3 Hospitalists E11.9 I10 Z96.651 Office Visit 04/16/2017 8:45a [facility] M.D. 21292 M17.12 C.M.AGerda Z96.652 M17.11 Office Visit 01/29/2017 9:45a [facility] M.D. 41040 M17.11 C.M.A. Office Visit 07/12/2016 9:30a [facility] M.D. 08543 M17.11 C.M.AGerda M17.12 Z96.652 Office Visit 11/11/2014 11:00a [facility] 67935 726.5 Ashley.MHalle RPA-C Office Visit 09/02/2014 2:00p [facility] 66427 726.5 Chio GUERRA-C Office Visit 04/28/2013 1:00p [facility] 82151 719.47 Chio Shankar Plan of Care Future Appointment(s):04/01/2018 9:30 am - Dirk Yash, M.D. at [facility]03/19/2018 7:30 am - [place] Chin at [facility]03/19/2018 7:30 am - Андрей Berrios M.D. at [facility]
[2018-03-19] MEDS ORDERED: Buffered Lidocaine 0.9% SYRIN* 5 ML/SYR SYRINGE ONE (06:11)
[2018-03-19] MEDS ORDERED: ceFAZolin 2 GM PREMIX (*) 2 GM/50 ML BAG IVPB ONE (06:11)
[2018-03-19] MEDS ORDERED: Morphine PF AMP (0.5MG/ML)* 5 MG/10 ML AMP ONE (07:34)
[2018-03-19] MEDS ORDERED: Midazolam* 1 MG/ML 2 ML VIAL (2 MG) ONE ×2 (07:35→08:08)
[2018-03-19] MEDS ORDERED: Rocuronium* 10 MG/ML VIAL ONE (08:39)
[2018-03-19] MEDS ORDERED: Bupivacaine 0.5% PF 10 ML VIAL INJ ONE ×2 (09:19→09:45)
[2018-03-19] MEDS ORDERED: Naloxone* 0.4 MG/ML 1 ML VIAL IV PRN ×2 (09:39→09:45)
[2018-03-19] MEDS ORDERED: Ondansetron INJ* 2 MG/ML VIAL IV PRN (09:39)
[2018-03-19] MEDS ORDERED: oxyCODONE/Acetamin 5/325 MG* TAB PO PRN ×2 (09:45→10:48)
[2018-03-19] MEDS ORDERED: Lidocain 1% EPI 1:100,000 * 30 ML MDV ONE (09:45)
[2018-03-19] MEDS ORDERED: Propofol* 10 MG/ML 20 ML BTL IV PUSH ONE (10:19)
[2018-03-19] MEDS ORDERED: Neostigmine Methylsulfate* 2 MG/2 ML SYRINGE ONE (10:24)
[2018-03-19] MEDS ORDERED: Glycopyrrolate IV* 0.2 MG/ML 1 ML VIAL ONE (10:24)
[2018-03-19] MEDS ORDERED: diPHENhydraMINE PO* 25 MG PO PRN (10:48)
[2018-03-19] MEDS ORDERED: diPHENhydraMINE IV* 50 MG/ML 1 ml VIAL (BENADRYL) IV PRN (10:48)
[2018-03-19] MEDS ORDERED: Ondansetron TAB* 4 MG PO PRN (10:48)
[2018-03-19] MEDS ORDERED: Ondansetron 40 MG VIAL* 2 MG/ML 20 ML VIAL IV PRN (10:48)
[2018-03-19] MEDS ORDERED: Magnesium Hydroxide LIQ* 30 ML UDC PO PRN (10:48)
[2018-03-19] MEDS ORDERED: Morphine VIAL* 4 MG/ML VIAL (1 ml vial) IV PRN ×2 (10:48→12:43)
[2018-03-19] MEDS ORDERED: Morphine INJ* 10 MG/ML 1 ML CARPUJECT IV PRN (10:48)
[2018-03-19] MEDS ORDERED: Cyclobenzaprine TAB* 10 MG PO PRN (10:48)
[2018-03-19] MEDS ORDERED: oxyCODONE TAB* 5 MG TAB PO PRN (10:48)
[2018-03-19] MEDS ORDERED: ESTRADIOL VAGINAL 10 MCG VAGINAL PRN (11:03)
[2018-03-19] MEDS ORDERED: fentaNYL* 50 MCG/ML 2 ML VIAL (100 MCG VIAL) ONE (11:06)
[2018-03-19] MEDS: fentaNYL* 50 MCG/ML 2 ML VIAL (100 MCG VIAL) IV PRN ×2 (11:10→11:38)
[2018-03-19] MEDS ORDERED: Dextrose 50% Syringe 50 ML* 25 GM/50 ML SYRINGE IV PUSH PRN (11:27)
--- NOTE | 2018-03-19 11:27 | CONSULT ---
Subjective Date of Service: 03/19/18 Interval History: This is a very pleasant 67 year old female with history of OA, HTN, HLP, DMII, CKD stage 3 and chronic anemia that has undergone a right total hip arthroplasty today. She was seen in the PACU, complaining of some post- operative pain. Anesthesia and nursing at bedside. We are requested to co- manage the patient for her chronic anemia and other comorbid conditions while she is recovering from surgery. Family History: Findings - mother, CVA, HTN, DM Social History: Findings - denies tobacco, ETOH, illicit drugs Past Medical History: Findings - as above Review of Systems - Measurements Intake and Output: Intake and Output Last 24 Hours 03/17/18 03/18/18 03/19/18 03/20/18 06:59 06:59 06:59 06:59 Intake Total 2300 Output Total 205 Balance 2094 Weight 177 lb Intake: IV Fluids 2300 LR 2300 Output: Lyn 175 Residual 30 Lyn 16 Fr 30 Other: Estimated Blood Loss 200 Comment - Review of Systems Constitutional Symptoms: Negative: Weight Gain, Weight Loss, Weakness, Fatigue, Fever, Night Sweats, Unexplained Falls, Other Dermatology: Negative: Normal, Rash, Skin Lesions, Cancer, Skin Lumps, Other HEENT: Negative: Normal, Change in Hearing, Vertigo, Dental Problems, Tinnitus, Sinus Problem, Other Eyes: Negative: Normal, Change in Vision, Double Vision, Eye Pain, Glaucoma, Cataract, Contacts or Glasses, Other Thyroid: Negative: Normal, Goiter, Thyroid Nodule, Cold Intolerance, Heat Intolerance , Sweatiness, Tremor, Frequent Defecation, Constipation, Palpitations, Primary Hypothyroidism, Primary Hyperthyroidism, Weight Loss, Weight Gain, Change in Skin/Hair, Change in Menstruation, Radiation Exposure, Other Pulmonary: Negative: Normal, Cough, Sputum, Hemoptysis, Wheezing, Respiratory Distress, Shortness of Breath, COPD, Asthma, Exercise Intolerance, Home Oxygen, Other Cardiology: Negative: Normal, Chest Pain, Shortness of Breath, Palpitations, Swelling of Ankles, Peripheral Vascular Dis, Edema, Faintness, Syncope, Claudication, Proximal NocturnalDyspnea, Orthopnoea, Other Gastroenterology: Negative: Normal, Abdominal Pain, Nausea, Vomiting, Anorexia, Indigestion, Difficulty Swallowing, Heartburn, Constipation, Diarrhea, Blood in Stools, Change in Bowel Habits, Haematemesis, Melena, Other Genital - Urinary: Negative: Normal, Dysuria, Hematuria, Polyuria, Nocturia, Other Genitourinay - Female: Negative: Menses Normal, Vaginal Discharge, Menopause, Dysmenorrhea, Other Musculoskeletal: Positive: Joint Pain Endocrinology: Positive: Diabetes Mellitus Hematologic/Lymphatic: Positive: Anemia Neurology: Negative: Normal, Headache, Migraines, Change in Vision, Diplopia, Dizziness , Change in Balancing, Change in Coordination, Change in Memory, Change in Speech, Change in Sphincter Function, Change in Walking, Numbness\Paresthesiae, Unexplained Weakness, Hx of Stroke\TIA, Hx of Seizures, Other Psychiatry: Negative: Normal, Depression, Anxiety, Depressed Mood, Adhedonia, Sexual Dysfunction, Weight Change, Guilt Feelings, Tearfulness, Unusual Fatigue, Unusual Anxiety, Suicidal Ideation, Hypomania, Eating Disorders, Other Allergic/Immunologic: Negative: Hx Anaphylaxis, Hx Angioedema, Hx Environmental, Hx Seasonal, Athsma, Hx HIV, Immunocompromise, Swollen Glands LymphNodes, Other Objective Active Medications: Aspirin (Aspirin Tab*) 325 mg PO DAILY [facility] Cyclobenzaprine HCl (Flexeril Tab*) 10 mg PO TID PRN PRN Reason: SPASMS Diphenhydramine HCl (Benadryl Iv*) 25 mg IV Q6H PRN PRN Reason: itching Diphenhydramine HCl (Benadryl Po*) 25 mg PO Q6H PRN PRN Reason: itching Docusate Sodium (Colace Cap*) 100 mg PO BID [facility] Estradiol (Vagifem) 10 mcg VAGINAL BEDTIME PRN PRN Reason: DISCOMFORT Fentanyl Citrate (Fentanyl*) 25 mcg IV Q2M PRN PRN Reason: PAIN - MODERATE Last Admin: 03/19/18 11:10 Dose: 25 mcg Ferrous Sulfate (Ferrous Sulfate Tab*) 325 mg PO BID [facility] Lactated Ringer's (Lactated Ringers 1000 Ml Bag*) 1,000 mls @ 125 mls/hr IV PER RATE [facility] Last Admin: 03/19/18 06:42 Dose: 125 mls/hr Cefazolin Sodium/Dextrose (Kefzol 1 Gm In Dextrose Duplex (*)) 1 gm in 50 mls @ 200 mls/hr IVPB Q8H [facility] Stop: 03/20/18 03:14 Lactated Ringer's (Lactated Ringers 1000 Ml Bag*) 1,000 mls @ 100 mls/hr IV PER RATE [facility] Lidocaine/Sodium Bicarbonate (Buffered Lidocaine 0.9% Syrin*) 0.2 ml INTRADERM ONCE ONE Stop: 03/15/18 11:55 Last Admin: 03/19/18 06:42 Dose: 0.2 ml Magnesium Hydroxide (Milk Of Magnesia Liq*) 30 ml PO BID [facility] Magnesium Hydroxide (Milk Of Magnesia Liq*) 30 ml PO Q6H PRN PRN Reason: constipation Metformin HCl (Glucophage*) 1,000 mg PO BID [facility] Metoprolol Succinate (Toprol Xl Tab*) 50 mg PO QPM [facility] Morphine Sulfate (Morphine Inj (Syringe)*) 2 mg IV Q2H PRN PRN Reason: PAIN - BREAKTHROUGH Morphine Sulfate (Morphine Inj (Syringe)*) 4 mg IV Q2H PRN PRN Reason: PAIN - UNRELIEVED Naloxone HCl (Narcan*) 0.08 mg IV Q2M PRN PRN Reason: severe induced resp depression Stop: 03/20/18 09:38 Naloxone HCl (Narcan*) 0.08 mg IV Q2M PRN PRN Reason: severe induced resp depression Stop: 03/20/18 09:44 Non-Formulary Medication (Amlodipine Besylate [Norvasc 10 Mg Tab]) 10 mg PO QPM [facility] Non-Formulary Medication (Calcium Carbonate/Vitamin D3 [Calcium 1,000 + D3 Caplet]) 1 tab PO QAM [facility] Non-Formulary Medication (Lisinopril [Lisinopril]) 40 mg PO QAM [facility] Non-Formulary Medication (Vision Formula) 1 tab PO QAM [facility] Omeprazole (Prilosec Cap*) 20 mg PO QAM [facility] Ondansetron HCl (Zofran Inj*) 4 mg IV ONCE PRN PRN Reason: NAUSEA/VOMITING Ondansetron HCl (Zofran Inj*) 4 mg IV Q6H PRN PRN Reason: nausea Ondansetron HCl (Zofran Tab*) 4 mg PO Q6H PRN PRN Reason: NAUSEA Oxycodone HCl (Roxycodone Tab*) 10 mg PO Q4H PRN PRN Reason: PAIN - SEVERE Oxycodone/Acetaminophen (Percocet 5/325 Tab*) 1 tab PO Q3H PRN PRN Reason: Moderate Pain Oxycodone/Acetaminophen (Percocet 5/325 Tab*) 2 tab PO Q4H PRN PRN Reason: PAIN - MODERATE Oxycodone/Acetaminophen (Percocet 5/325 Tab*) 1 tab PO Q4H PRN PRN Reason: PAIN - MILD Vital Signs - 8 hr 03/19/18 03/19/18 03/19/18 06:27 10:39 10:45 Temperature 98.1 F 96.8 F Pulse Rate 70 89 Respiratory 16 20 16 Rate Blood Pressure 139/87 145/75 (mmHg) O2 Sat by Pulse 96 100 Oximetry 03/19/18 03/19/18 03/19/18 10:46 10:50 11:01 Temperature Pulse Rate 85 85 78 Respiratory 11 14 19 Rate Blood Pressure 147/86 136/85 131/75 (mmHg) O2 Sat by Pulse 91 92 99 Oximetry 03/19/18 03/19/18 11:10 11:15 Temperature Pulse Rate 77 Respiratory 18 12 Rate Blood Pressure 131/75 (mmHg) O2 Sat by Pulse 100 Oximetry Oxygen Devices in Use Now: Nasal Cannula Appearance: Alert, NAD Assessment/Plan - Billing Plan By Medical Problem and Recommendations: 1. OA, s/p RTHA, POD0 - POC as per ortho - Pain control, OOB per ortho recommendations with PT/OT - Bowel regimen while on narcotics 2. Anemia, chronic, likely 2/2 to CKD and DM - Evaluated previous labs, HgB ranges from 9.3-11 for the past year, this is likely 2/2 renal dysfunction and chronic disease - Follow inpatient iron studies, continue FeSO4 daily supplementation - Recommend outpatient workup for anemia of chronic disease and/or nephrology when healed from surgery - Goal HgB>8.0 3. DMII - A1C=6.5 - Hold metformin until patient eating full meals - Accuchecks ACHS with lispro SS coverage - Consistent carb diet 4. HTN - Continue amlodipine and metoprolol 5. CKD3 - Monitor renal function - Baseline runs from 1.05-1.71 6. GERD - PUD prophy with PPI VTE PPX: - DVT prophy as per ortho, currently full dose ASA 325mg daily Diet: - Consistent carb Code Status: - Full Code Admission Status and Rationale: - Remain inpatient for acute postoperative care Thank you for the courtesy of this consult. We agree to follow the patient with you.
--- NOTE | 2018-03-19 11:43 | RAD ---
INDICATION: Postoperative right hip arthroplasty COMPARISON: Pelvis February 13, 2018 TECHNIQUE: A single portable view the pelvis was acquired FINDINGS: There is right hip arthroplasty. The prosthesis appears normally seated. There are changes in soft tissues compatible with recent surgery. No additional findings IMPRESSION: THE RIGHT HIP PROSTHESIS APPEARS NORMALLY SEATED.
[2018-03-19] MEDS: Insulin LISPRO* 1 UNITS UNIT SUBCUT SCH ×3 (13:32→22:06)
[2018-03-19] MEDS ORDERED: ceFAZolin 1 GM in Dextrose (*) 1 GM/50 ML BAG IVPB SCH (14:00)
[2018-03-19 16:22] LABS: Hematocrit 25 % (35-47); Hemoglobin 8.1 g/dl (12.0-16.0)
[2018-03-19] MEDS: Metoprolol Succinate XL TAB* 50 MG PO SCH (17:23)
[2018-03-19] MEDS: amLODIPine TAB* 5 MG PO SCH (17:23)
[2018-03-19] MEDS: ceFAZolin 1 GM in Dextrose (*) 1 GM/50 ML BAG IVPB SCH (17:24)
[2018-03-19] MEDS ORDERED: metFORMIN* 1,000 MG TAB PO SCH (21:00)
[2018-03-19] MEDS: Magnesium Hydroxide LIQ* 30 ML UDC PO SCH (22:06)
[2018-03-19] MEDS: Ferrous Sulfate TAB* 325 MG PO SCH (22:06)
[2018-03-19] MEDS: Docusate CAP* 100 MG PO SCH (22:06)
[2018-03-20] MEDS: ceFAZolin 1 GM in Dextrose (*) 1 GM/50 ML BAG IVPB SCH ×2 (00:03→08:13)
[2018-03-20] MEDS: oxyCODONE/Acetamin 5/325 MG* TAB PO PRN ×4 (03:30→23:37)
[2018-03-20 06:08] LABS: Hematocrit 26 % (35-47); Hemoglobin 8.4 g/dl (12.0-16.0); Mean Platelet Volume 8.4 um3 (7.4-10.4); Platelet Count 233 10^3/ul (150-450)
--- NOTE | 2018-03-20 06:52 | PN ---
Progress Note - Progress Note Date of Service: 03/20/18 Note: POD #1 Awake, alert, cooperative and breathing easily. No marked distress right hip region. She received 1 unit of PRBCs last night for Hct 25% and concern for further losses and the Hct this AM is 26%. Electrolytes are OK. I and O are: 5548 and 3180. Post Op X-Ray right hip all satisfactory. Right thigh minimally swollen, dressing is dry. Lifts right knee and can IR and ER right hip and extend it. Right foot PT pulse is 2 plus. Active right ankle movements up and down. Imp: Acute blood loss anemia and chronic anemia. Doing well after hip replacement. Plans: Follow symptoms and the H/H carefully, transfuse more as needed. Up with walker, OOB to chair and THR rahab protocol.
--- NOTE | 2018-03-20 07:41 | OP ---
DATE OF OPERATION: 03/19/18 - ROOM #342 DATE OF : 54. SURGEON: Андрей Berrios M.D. C[employer]SE SUPERVISOR: PA. Ian, first officer and flight instructor. Patt Machado, surgical physician assistant. ANESTHESIOLOGIST: Dr. Michael Messina. ANESTHESIA: Spinal was given including Duramorph and then we were not certain whether the spinal had taken effect, so a general anesthetic with an endotracheal tube was administered. PRE-OP DIAGNOSIS: Severe arthritis of the right hip. POST-OP DIAGNOSIS: Severe arthritis of the right hip. OPERATIVE PROCEDURE: Right total hip replacement. COMPONENTS UTILIZED: Magalys components were utilized. The acetabular cup is a size 52 Continuum cup cluster holes with two screws. There is an elevated liner to accommodate a 36 head with the elevation located posteriorly. The liner is polyethylene, high density. The femoral side has an M/L taper size 9, standard reduced neck and the head is a 36-mm cobalt chrome -3.5. DESCRIPTION OF PROCEDURE: A Lyn catheter was also inserted. Following these preparations, the patient was placed in the left lateral position. The downside left leg was padded so there was no pressure on the peroneal nerve, and the pelvis was secured over the ASIS and the sacrum utilizing hip positioner. The axilla was padded on the left. The groin was sealed off and the right hip was given a preliminary chlorhexidine prep and then the right hip was prepped and draped free from the lower ribs to the foot. After prepping, draping, and sealing off, we did our universal protocol time-out confirming Ramya Radha and a plan for a right total hip replacement. We all agreed and we proceeded. The hip was approached with a slightly curving posterolateral skin incision going from the greater trochanter distally for an inch and a half, and curving proximally and posteriorly towards the posterior iliac crest for 2-1/2 to 3 inches. The skin and subcu divided down to the deep fascia. Careful hemostasis was checked and achieved throughout the case utilizing electrocautery. The Charnley retractor was inserted. The trochanteric bursa was then traversed and the hip was then approached posteriorly. A blunt Hohmann retractor was placed behind the gluteus medius to retract it anteriorly. The piriformis was identified and released along its superior border, and released over the piriformis fossa insertions and the conjoint tendon the same. Each tendon was marked with #2 Surgidac suture and the underlying capsular flap was also marked. The hip had a clear goldish synovial fluid. A careful posterior approach was done to the hip with careful hemostasis. We protected the gluteus minimus with a blunt Hohmann retractor as well. The hip was dislocated without difficulty. The femoral neck was marked with a cutting guide and the femoral neck was cut approximately a fingerbreadth proximal to the lesser trochanter. The head and neck was removed. The head was completely eburnated. It was out of shape. It had no cartilage on the superior surfaces. On the acetabular side, we used sharp Hohmann retractors anteriorly and posteriorly, and blunt Hohmann superiorly and inferiorly. The remains of the acetabular labrum removed posteriorly, superiorly, and anteriorly. The Charnley curette was utilized and then reaming was done 43 through 52 and at 52, we had nice bleeding subchondral and cancellous bone. The acetabulum was cleaned several times with pulsed saline. A 52 Continuum cup was then impacted into position in 45 degrees of abduction, 20 degrees of anteversion. It was held with two screws and an elevated liner for a 36 head was placed posteriorly. On the femoral side, we used a canal finder, trochanteric reamer, broaching was done 4 through 10, and with the [address], we did a reduction with a reduced neck and a +0 head, and this was too tight. So we then did a trial reduction with a standard size 9 broach, and the reduced neck with a 3.5, and this reduced very satisfactorily and the soft tissue tensions I thought were very satisfactory. The size 9 reduced neck, standard M/L tapered stem was then impacted into position in 15 to 20 degrees of anteversion. The trial reduction was done with a -3.5, 36 mm head with a nice soft tissue tension. The trunnion was then cleaned, and the 35 on the -3.5, 36 mm cobalt chrome head was impacted into position on the clean trunnion. The hip was reduced with nice soft tissue tensions. Hip extension was 0. There was no tendency towards dislocation with IR and ER, and extension, and the hip allowed 90 degrees of flexion and 30 to 40 degrees of internal rotation, and adduction prior to dislocation. The piriformis and conjoint tendon were reapproximated through 2 drill holes to the posterior superior greater trochanter. We checked again for hemostasis and it was achieved. I did not think drains were necessary. The hip was irrigated several times during closure with pulsed saline and the soft tissues were swabbed with lap sponges. The piriformis and conjoint tendon were reapproximated through 2 drill holes to the posterior superior greater trochanter. The fascia jose closed with interrupted #1 Polysorb sutures, the same with the fascial gluteus tej, and then the deep and superficial subcu was closed with 0 and then 2-0 Polysorb and then maria luisa on the skin. The skin was washed and dried, and covered with Betadine-soaked release followed by sterile gauze, ABD pad, and then paper tape. Also, the hip was instilled with local anesthetic [address] out, the 40- mL was an equal mix of 0.5% Marcaine without epinephrine and 1% Xylocaine with epinephrine, 20 mL of each were utilized, and 20 mL placed deep to the facial jose, and another 20 mL placed in the anterior and posterior subcu prior to finally closing the skin. The patient was returned to the supine position and then on to the hospital bed , to recovery room in stable and satisfactory condition having tolerated the procedure very well. [id number] #: [id number] MTDD
[2018-03-20] MEDS: VISION FORMULA PO SCH (08:06)
[2018-03-20] MEDS: Insulin LISPRO* 1 UNITS UNIT SUBCUT SCH ×4 (08:07→21:05)
[2018-03-20] MEDS: Magnesium Hydroxide LIQ* 30 ML UDC PO SCH ×2 (08:07→19:27)
[2018-03-20] MEDS: Ferrous Sulfate TAB* 325 MG PO SCH ×2 (08:08→21:07)
[2018-03-20] MEDS: Omeprazole CAP* 20 MG PO SCH (08:08)
[2018-03-20] MEDS: Calcium/Vitamin D TAB 250/125* TAB PO SCH (08:08)
[2018-03-20] MEDS: Polyethylene Glycol 3350* 17 GM PACKET PO SCH (08:09)
[2018-03-20] MEDS: Docusate CAP* 100 MG PO SCH ×2 (08:09→19:27)
[2018-03-20] MEDS ORDERED: Lisinopril TAB* 10 MG PO SCH (09:00)
[2018-03-20] MEDS: Aspirin TAB* 325 MG PO SCH (11:40)
--- NOTE | 2018-03-20 14:03 | PN ---
Subjective Date of Service: 03/20/18 Interval History: Patient feeling very well today. No pain at rest or with activity. Patient denies F/C, N/V, abdominal pain, dysuria, CP, SOB, dizziness, palpitations, or other pain. Patient has been urinating after her sumner was removed and was able to walk in the [place] with PT. Family History: Findings Social History: Findings - denies tobacco, ETOH, illicit drugs Past Medical History: Findings - as above Objective Active Medications: Amlodipine Besylate (Norvasc Tab*) 10 mg PO QPM REPLACED BY [facility] Last Admin: 03/19/18 17:23 Dose: 10 mg Aspirin (Aspirin Tab*) 325 mg PO DAILY REPLACED BY [facility] Last Admin: 03/20/18 11:40 Dose: 325 mg Calcium/Vitamin D (Oscal D Tab 250/125*) 1 tab PO QAM REPLACED BY [facility] Last Admin: 03/20/18 08:08 Dose: 1 tab Cyclobenzaprine HCl (Flexeril Tab*) 10 mg PO TID PRN PRN Reason: SPASMS Dextrose (D50w Syringe 50 Ml*) 12.5 gm IV PUSH .FOR FS < 60 - SS PRN PRN Reason: FS < 60 Diphenhydramine HCl (Benadryl Iv*) 25 mg IV Q6H PRN PRN Reason: itching Diphenhydramine HCl (Benadryl Po*) 25 mg PO Q6H PRN PRN Reason: itching Docusate Sodium (Colace Cap*) 100 mg PO BID REPLACED BY [facility] Last Admin: 03/20/18 08:09 Dose: 100 mg Estradiol (Vagifem) 10 mcg VAGINAL BEDTIME PRN PRN Reason: DISCOMFORT Ferrous Sulfate (Ferrous Sulfate Tab*) 325 mg PO BID REPLACED BY [facility] Last Admin: 03/20/18 08:08 Dose: 325 mg Lactated Ringer's (Lactated Ringers 1000 Ml Bag*) 1,000 mls @ 100 mls/hr IV PER RATE REPLACED BY [facility] Last Admin: 03/20/18 03:33 Dose: 100 mls/hr Insulin Human Lispro (Humalog*) 0 units SUBCUT ACHS REPLACED BY [facility] PRN Reason: Protocol Last Admin: 03/20/18 11:41 Dose: Not Given Lisinopril (Prinivil Tab*) 40 mg PO QAM REPLACED BY [facility] Last Admin: 03/20/18 08:09 Dose: 40 mg Magnesium Hydroxide (Milk Of Magnesia Liq*) 30 ml PO BID REPLACED BY [facility] Last Admin: 03/20/18 08:07 Dose: 30 ml Magnesium Hydroxide (Milk Of Magnesia Liq*) 30 ml PO Q6H PRN PRN Reason: constipation Metoprolol Succinate (Toprol Xl Tab*) 50 mg PO QPM REPLACED BY [facility] Last Admin: 03/19/18 17:23 Dose: 50 mg Morphine Sulfate (Morphine Vial*) 4 mg IV Q2H PRN PRN Reason: PAIN - UNRELIEVED Morphine Sulfate (Morphine Vial*) 2 mg IV Q2H PRN PRN Reason: PAIN - BREAKTHROUGH Nf:(Vision Formula 1 (Tab)) 1 tab PO QAM REPLACED BY [facility] Last Admin: 03/20/18 08:06 Dose: Not Given Omeprazole (Prilosec Cap*) 20 mg PO QAM REPLACED BY [facility] Last Admin: 03/20/18 08:08 Dose: 20 mg Ondansetron HCl (Zofran 40 Mg Vial*) 4 mg IV Q6H PRN PRN Reason: nausea Ondansetron HCl (Zofran Tab*) 4 mg PO Q6H PRN PRN Reason: NAUSEA Oxycodone HCl (Roxycodone Tab*) 10 mg PO Q4H PRN PRN Reason: PAIN - SEVERE Oxycodone/Acetaminophen (Percocet 5/325 Tab*) 2 tab PO Q4H PRN PRN Reason: PAIN - MODERATE Last Admin: 03/20/18 07:22 Dose: 2 tab Oxycodone/Acetaminophen (Percocet 5/325 Tab*) 1 tab PO Q4H PRN PRN Reason: PAIN - MILD Last Admin: 03/20/18 12:17 Dose: 1 tab Polyethylene Glycol/Electrolytes (Miralax*) 17 gm PO DAILY REPLACED BY [facility] Last Admin: 03/20/18 08:09 Dose: Not Given Vital Signs - 8 hr 03/20/18 03/20/18 03/20/18 07:18 07:20 07:22 Temperature 98.0 F Pulse Rate 78 Respiratory 18 18 18 Rate Blood Pressure 126/66 (mmHg) O2 Sat by Pulse 98 Oximetry 03/20/18 03/20/18 03/20/18 08:00 10:10 11:12 Temperature 99.2 F Pulse Rate 83 Respiratory 18 16 18 Rate Blood Pressure 102/62 (mmHg) O2 Sat by Pulse 98 98 Oximetry 03/20/18 12:17 Temperature Pulse Rate Respiratory 18 Rate Blood Pressure (mmHg) O2 Sat by Pulse Oximetry Oxygen Devices in Use Now: None Appearance: Patient is a 67yo female who appears stated age and is sitting in the bed in NAD. Eyes: No Scleral Icterus, PERRLA Ears/Nose/Mouth/Throat: NL Teeth, Lips, Gums, Clear Oropharnyx, Mucous Membranes Moist Neck: NL Appearance and Movements; NL JVP, Trachea Midline Respiratory: Symmetrical Chest Expansion and Respiratory Effort, Clear to Auscultation Cardiovascular: NL Sounds; No Murmurs; No JVD, RRR, No Edema Abdominal: NL Sounds; No Tenderness; No Distention, No Hepatosplenomegaly Lymphatic: No Cervical Adenopathy Extremities: No Edema, No Clubbing, Cyanosis Skin: No Nodules or Sclerosis, - - Dressing to Right hip CDI. Neurological: Alert and Oriented x 3, NL Sensation, NL Muscle Strength and Tone , - - CN II-XII intact. Result Diagrams: 03/20/18 05:32 03/20/18 05:32 Assess/Plan/Problems-Billing Plan By Medical Problem and Recommendations: 1. OA, s/p RTHA, POD1 - POC as per ortho - Pain control, OOB per ortho recommendations with PT/OT. Pain well controlled - Bowel regimen while on narcotics. Having loose stools likely due to laxatives. 2. Anemia, chronic, likely 2/2 to CKD and DM - Evaluated previous labs, HgB ranges from 9.3-11 for the past year, this is likely 2/2 renal dysfunction and chronic disease - Inpatient iron studies shows deficiency, continue FeSO4 daily supplementation - Recommend outpatient workup for anemia of chronic disease and/or nephrology when healed from surgery - Goal HgB>8.0 3. DMII - A1C=6.5 - Hold metformin until patient eating full meals - Accuchecks ACHS with lispro SS coverage - Consistent carb diet 4. HTN - Continue amlodipine, lisinipril, and metoprolol. - Normotensive, no dizziness. 5. CKD3 - Monitor renal function. At baseline. - Baseline runs from 1.05-1.71 6. GERD - PUD prophy with PPI VTE PPX: - DVT prophy as per ortho, currently full dose ASA 325mg daily - SCDs Diet: - Consistent carb Code Status: - Full Code Admission Status and Rationale: - Remain inpatient for acute postoperative care Thank you for the courtesy of this consult. We agree to follow the patient with you.
[2018-03-20] MEDS: Metoprolol Succinate XL TAB* 50 MG PO SCH (17:41)
[2018-03-20] MEDS: amLODIPine TAB* 5 MG PO SCH (17:41)
[2018-03-21] MEDS: oxyCODONE/Acetamin 5/325 MG* TAB PO PRN ×2 (06:24→13:59)
[2018-03-21 07:17] LABS: Hematocrit 25 % (35-47); Hemoglobin 8.2 g/dl (12.0-16.0); Mean Platelet Volume 8.4 um3 (7.4-10.4); Platelet Count 224 10^3/ul (150-450)
[2018-03-21] MEDS ORDERED: amLODIPine TAB* 5 MG PO SCH (08:03)
[2018-03-21] MEDS ORDERED: Lisinopril TAB* 10 MG PO SCH (08:03)
[2018-03-21] MEDS: Insulin LISPRO* 1 UNITS UNIT SUBCUT SCH ×2 (08:10→12:03)
[2018-03-21] MEDS: Ferrous Sulfate TAB* 325 MG PO SCH (08:11)
[2018-03-21] MEDS: Aspirin TAB* 325 MG PO SCH (08:11)
[2018-03-21] MEDS: Calcium/Vitamin D TAB 250/125* TAB PO SCH (08:11)
[2018-03-21] MEDS: Omeprazole CAP* 20 MG PO SCH (08:11)
[2018-03-21] MEDS: VISION FORMULA PO SCH (08:12)
[2018-03-21] MEDS: Magnesium Hydroxide LIQ* 30 ML UDC PO SCH (08:12)
[2018-03-21] MEDS: Docusate CAP* 100 MG PO SCH (08:12)
[2018-03-21] MEDS: Polyethylene Glycol 3350* 17 GM PACKET PO SCH (08:12)
--- NOTE | 2018-03-21 09:47 | PN ---
Progress Note - Progress Note Date of Service: 03/21/18 SOAP: Subjective: []Patient seen OOB in chair. She feels well and denies dizziness, lightheadedness, SOB, CP or nausea. Met goals and no dizziness with PT this morning. Objective: [] Vital Signs Temp 97.7 F 03/21/18 07:34 Pulse 85 03/21/18 11:15 Resp 16 03/21/18 08:13 BP 112/67 03/21/18 11:15 Pulse Ox 92 03/21/18 08:00 Intake & Output 03/20/18 03/21/18 03/21/18 18:59 06:59 18:59 Intake Total 2735 840 600 Output Total 600 1500 1100 Balance 2135 -660 -500 Intake: IV Fluids 1195 ABX - CEFAZOLIN 55 LR 1140 Oral 1540 840 600 Output: Urine 600 1500 1100 Other: Estimated Void Medium # Bowel Movements 1 Estimated Stool Amount Medium # Voids 1 Laboratory Last Values Hgb 8.2 g/dl (12.0-16.0) L 03/21/18 06:44 Hct 25 % (35-47) L 03/21/18 06:44 Plt Count 224 10^3/ul (150-450) 03/21/18 06:44 MPV 8.4 um3 (7.4-10.4) 03/21/18 06:44 Sodium 137 mmol/L (139-145) L 03/20/18 05:32 Potassium 4.3 mmol/L (3.5-5.0) 03/20/18 05:32 Chloride 104 mmol/L (101-111) 03/20/18 05:32 Carbon Dioxide 27 mmol/L (22-32) 03/20/18 05:32 Anion Gap 6 mmol/L (2-11) 03/20/18 05:32 BUN 14 mg/dL (6-24) 03/20/18 05:32 Creatinine 0.95 mg/dL (0.51-0.95) 03/20/18 05:32 Est GFR ( Amer) 75.9 (>60) 03/20/18 05:32 Est GFR (Non-Af Amer) 59.0 (>60) 03/20/18 05:32 BUN/Creatinine Ratio 14.7 (8-20) 03/20/18 05:32 Glucose 142 mg/dL (70-100) H 03/20/18 05:32 POC Glucose (mg/dL) 133 mg/dL (70-100) H 03/21/18 07:08 Calcium 8.7 mg/dL (8.6-10.3) 03/20/18 05:32 Iron 52 ug/dL (50-212) 03/19/18 15:53 TIBC 428 mcg/dL (250-450) 03/19/18 15:53 % Saturation 12 % (15-55) L 03/19/18 15:53 Unsat Iron Binding 376 ug/dL 03/19/18 15:53 Transferrin 306 mg/dL (203-362) 03/19/18 15:53 Ferritin 10.6 ng/mL (11-307) L 03/19/18 15:53 Blood Type A Positive 03/19/18 16:08 Antibody Screen Negative 03/19/18 16:08 Crossmatch See Detail 03/19/18 16:08 General: Well appearing, NAD RLE: Right hip dressing changed, incision CDI without erythema or discharge. Thigh soft. Able to flex and extend at knee. DF/PF intact. DP2+, capillary refill less than two seconds distally. BL LE: Calves supple and nontender without erythema, edema or palpable cords Assessment: []POD 2 sp right total hip arthroplasty Acute bloodloss anemia Chronic anemia Plan: []WBAT PT/OT Lisinopril and amlodipine held today for systolic BP less than 100 and 500 ml LR bolus given Discharge to home today
[2018-03-21 12:12] VITALS: BP 138/68
--- NOTE | 2018-03-22 13:41 | DS ---
DISCHARGE SUMMARY: DATE OF ADMISSION: 03/19/18 DATE OF DISCHARGE: 03/21/18 PROVIDER: Dr. Андрей Berrios.* (DICTATED BY [place] BEDOLLA) BEE BREEDER: [place] Chin. PRE-OP DIAGNOSIS: Severe arthritis of the right hip. OPERATIVE PROCEDURE: Right total hip arthroplasty. HISTORY: Ms. Garcia is a 67-year-old female, who has failed conservative treatment of right hip arthritis and has elected to undergo a right total hip arthroplasty. HOSPITAL COURSE: Ms. Garcia was admitted to [facility] on . She underwent a right total hip arthroplasty without complication. She recovered briefly in the PACU and then was transferred to the short-stay surgical unit in stable condition. She was followed by the hospitalist service , Occupational and Physical Therapy while she was here. Postop day 1, she was awake, alert, cooperative, breathing easily; no marked distress. She had received 1 unit of packed red blood cells on 03/19/18 for acute blood loss anemia with known chronic anemia. Right thigh was minimally swollen. Dressing was clean, dry, and intact. Able to lift the right knee. Can internally and externally rotate the hip and extend it. Dorsiflexion and plantarflexion intact. 2+ dorsalis pedis pulse. Postop day 2, the patient is well appearing, in no acute distress. Dressing was changed. Incision clean, dry, and intact without erythema or discharge. Thigh was soft, able to flex and extend at the knee joint. Dorsiflexion and plantarflexion intact. DP pulse 2+. Capillary refill less than 2 seconds distally. Due to low blood pressures, lisinopril and amlodipine were held and 500 mL bolus of LR was given. During her stay, iron studies were completed; iron of 52, TIBC 428, percent saturation 12, unsaturated iron binding 376, transferrin 306, ferritin 10.6. On the day of discharge; hemoglobin 8.4 and hematocrit 26. On the day of discharge, vital signs; temperature 98.3, pulse rate 87, respiratory rate 16, oxygen saturation 99%, blood pressure 130/68. The patient was deemed to be medically and orthopedically stable for discharge home. DISCHARGE MEDICATIONS: 1. Metformin 1000 mg p.o. b.i.d. 2. Omeprazole 20 mg p.o. q.a.m. 3. Meloxicam 7.5 mg p.o. b.i.d. p.r.n. 4. Metoprolol 50 mg p.o. q.p.m. 5. Amlodipine 10 mg p.o. q.p.m. 6. Estradiol vaginal 10 mcg vaginal at bedtime p.r.n. 7. Calcium carbonate 1 tab p.o. q.a.m. 8. Lisinopril 40 mg p.o. q.a.m. 9. Acetaminophen 500 mg p.o. q. 8 hours p.r.n. 10. Aspirin 325 mg p.o. daily. 11. Docusate 100 mg p.o. b.i.d. 12. Ferrous sulfate 325 p.o. b.i.d. 13. Percocet 5/325 one to two tabs every 4 to 6 hours p.r.n., max daily dose of 10. DISCHARGE PLAN: The patient will be weightbearing as tolerated. Continue hip precautions. Continue physical therapy and occupational therapy exercises as shown. Okay to shower, do not submerge the wound. Visiting home nurse to remove the maria luisa in 10 to 12 days and do wound checks. Aspirin 325 mg p.o. daily for 30 days to prevent blood clots. After this month is complete, the patient will resume her 81 mg of aspirin daily. While she is taking the 325 mg/ day, she will not be taking her 81 mg tablet. Pain control: Percocet 5/325 one to two tabs every 4 to 6 hours as needed for pain, max daily dose of 10. The patient will monitor her blood pressure at home. This is a procedure she is familiar with, she will hold her amlodipine tonight, 03/21/18. If her blood pressure is less than 100/60 or if she is feeling dizzy, mildly lightheaded whatsoever, she will also hold her lisinopril and amlodipine on 03/22/18. She will continue to monitor her blood pressure and contact our office or her primary care provider, Dr. Noguera for instructions. She will plan to resume all blood pressure medications on 03/23/18 as long as she is not experiencing low blood pressure. She will follow up with Dr. Berrios in 4 to 6 weeks for the first postoperative appointment, sooner if she has any concerns, please call for an appointment. JERI DOWD, [place] [id number]/[facility] #: [id number] [facility]
== END 2018-03-21 14:30 | disposition home health service (06) | DRG 301 ==
LOC: AA 05:54 → SSU 12:29
PROVIDERS: ADMIT Orthopaedic Surgery; ATTEND Orthopaedic Surgery
PROC: 30233N1 Transfusion of Nonautologous Red Blood Cells into Peripheral Vein, Percutaneous Approach (ICD-10-PCS; 2018-03-19)
PROC: 0SR902A Replacement of Right Hip Joint with Metal on Polyethylene Synthetic Substitute, Uncemented, Open Approach (ICD-10-PCS; principal; 2018-03-19 07:30)
DX: M16.11 Unilateral primary osteoarthritis, right hip (principal); D62 Acute posthemorrhagic anemia; E78.5 Hyperlipidemia, unspecified; K21.9 Gastro-esophageal reflux disease without esophagitis; I12.9 Hypertensive chronic kidney disease with stage 1 through stage 4 chronic kidney disease, or unspecified chronic kidney disease; N18.3 Chronic kidney disease, stage 3 (moderate); E11.22 Type 2 diabetes mellitus with diabetic chronic kidney disease; D63.1 Anemia in chronic kidney disease; M85.80 Other specified disorders of bone density and structure, unspecified site; G89.29 Other chronic pain; Z96.653 Presence of artificial knee joint, bilateral; M47.9 Spondylosis, unspecified; Z82.49 Family history of ischemic heart disease and other diseases of the circulatory system; Z83.3 Family history of diabetes mellitus; Z82.3 Family history of stroke; Z90.710 Acquired absence of both cervix and uterus; Z98.51 Tubal ligation status; Z98.42 Cataract extraction status, left eye; Z88.1 Allergy status to other antibiotic agents; Z88.8 Allergy status to other drugs, medicaments and biological substances; Z86.718 Personal history of other venous thrombosis and embolism; Z72.89 Other problems related to lifestyle; Z79.82 Long term (current) use of aspirin; Z79.84 Long term (current) use of oral hypoglycemic drugs
CPT/HCPCS: 36415; 72170; 80048; 82728; 83540; 83550; 85014; 85018; 85049; 86850; 86900; 86901; 86922; A9270-GY; C1713; C1776; G8987-GO-CJ; G8988-GO-CI; J0690; J2250; J2704; J3010; P9040

== ENCOUNTER 2018-11-18 07:59 | Day surgery (SDC) | payer BC ==
[~2018-11-18 07:59] MED LIST changes: +Acetaminophen TAB* 325 MG PO PRN; -Buffered Lidocaine 0.9% SYRIN* 5 ML/SYR SYRINGE INTRADERM ONE
[2018-11-18] MEDS ORDERED: Midazolam* 1 MG/ML 2 ML VIAL (2 MG) ONE ×2 (09:38→09:45)
[2018-11-18 10:18] VITALS: BP 134/81
[2018-11-18] MEDS ORDERED: Tropicamide 1% OPTH.SOL* BTL ONE (10:27)
[2018-11-18] MEDS ORDERED: Phenylephrine 2.5% OPTH.SOL* 2 ML BTL ONE (10:27)
[2018-11-18] MEDS ORDERED: Cyclopentolate 1% OPTH.SOL* 2 ML BTL ONE (10:27)
[2018-11-18] MEDS ORDERED: Neomycin/Polymy/Dex OPHTH.OIN* 3.5 GM ONE (10:27)
[2018-11-18] MEDS ORDERED: Lidocaine 1%* 5 ML VIAL ONE (10:27)
[2018-11-18] MEDS ORDERED: Tetracaine 0.5% OPTH.SOL 4 ML* 1 DROP BTL ONE (10:27)
[2018-11-18] MEDS ORDERED: Povidone Iodine 5% OPTH* 30 ML BTL ONE (10:27)
[2018-11-18] MEDS ORDERED: Ketorolac 0.5% OPHTH (NF) 0.5 % 5 ML BTL ONE (10:27)
[2018-11-18] MEDS ORDERED: acetaZOLAMIDE TAB* 250 MG ONE (10:27)
--- NOTE | 2018-11-18 11:03 | OP ---
DATE OF OPERATION: 11/18/2018 - [facility] DATE OF : 1950. SURGEON: David Baer MD ANESTHESIA: Monitored anesthesia care. PREOPERATIVE DIAGNOSIS: Cataract, right eye. POSTOPERATIVE DIAGNOSIS: Cataract, right eye. OPERATIVE PROCEDURE: Extracapsular cataract extraction of the right eye with intraocular lens implant. IMPLANT: SN60WF 18.5 diopter lens to the right eye. COMPLICATIONS: None. DESCRIPTION OF PROCEDURE: The patient was given phenylephrine 2.5 % and cyclopentolate 1% eye drops to the operative eye in the preoperative area. The patient was taken to the operating room where a time-out was taken to identify the correct patient, site, and side of surgery. The patient's right eye was prepped and draped in the usual sterile fashion with 5% Betadine. A second time- out was taken to verify the correct patient, side, and site of surgery, as well as the correct lens implant. A lid speculum was placed to the right eye. A 1mm paracentesis blade was used to make a clear corneal incision. Preservative-free 1% lidocaine was injected into the anterior chamber. DisCoVisc was then injected into the anterior chamber. A 2.75 mm keratome blade was used to make a triplanar incision. A cystotome initiated a capsulorrhexis, which was completed with Utrata forceps in a continuous and curvilinear manner. Hydrodissection of the lens was performed with BSS on a cannula. The lens could be spun in a capsular bag. The phacoemulsification handpiece was used with a divide-and- conquer technique to remove the nucleus. The I/A handpiece then removed the residual cortical lens material. DisCoVisc was injected to inflate the capsular bag. The planned SN60WF 18.5 diopter lens was injected into the capsular bag. The residual DisCoVisc was removed from the eye with the I/A handpiece. The corneal incisions were hydrated and no leaks occurred at physiologic pressure around 20 mmHg per palpation. The lid speculum was removed and drapes were removed. Maxitrol ointment was placed to the surface of the operative eye. An adhesive patch and shield was then placed on the operative eye. The patient was taken to the postoperative area in stable condition. [id number]/[facility] #: [id number] [facility]
== END 2018-11-18 10:27 | disposition home or self-care (01) ==
LOC: OREAST 07:59
PROVIDERS: ATTEND Student in an Organized Health Care Education/Training Program
DX: H25.11 Age-related nuclear cataract, right eye (principal); E11.9 Type 2 diabetes mellitus without complications; Z79.84 Long term (current) use of oral hypoglycemic drugs; D50.9 Iron deficiency anemia, unspecified; I10 Essential (primary) hypertension
CPT/HCPCS: A9270-GY; J2250; V2632